=== PATIENT | female | born 1970 | race Caucasian/White ===

== ENCOUNTER → 2019-10-22 12:49 | Outpatient (CLI) | payer BC, SELFPAY ==
--- NOTE | ~2019-10-22 | XR_ITS ---
EXAMINATION: CT abdomen pelvis wo con, XR abdomen/kub 1V DATE: 10/22/2019 14:02 INDICATION: Calcium kidney stones presenting with left lower quadrant pain and left flank pain TECHNIQUE: 1. Computed tomography (CT) of the abdomen and pelvis was performed without intravenous contrast. Aut omated exposure control and iterative reconstruction technique were employed. The dose-length product was 221.25 mGy-cm. 2. COMPARISON: None FINDINGS: CT: Lung bases are clear. Heart size is normal. No pericardial or pleural effusion. Liver, gallbladder, s pleen, pancreas and bilateral adrenal glands are normal. Bilateral nephrolithiasis with at least 7 st ones in the right kidney measuring up to 7 mm at the upper pole and 11 stones in the right kidney [place] up to 4 mm in the upper and lower poles. 4 mm in the distal left ureter approximately 2 cm fro m the ureterovesicular junction. No hydronephrosis or hydroureter. No right-sided ureteral stones. Bl adder is normal. Phlebolith in the right hemipelvis. Large amount of stool throughout the colon. Smal l bowel and appendix are normal. No free intraperitoneal gas or fluid. No pathologically enlarged abd ominal or pelvic lymphadenopathy. Mild bilateral hip osteoarthritis. KUB: The 4 x 3 mm distal left ureteral stone is clearly visible on the plain radiographs as are several of the larger stones in both kidneys. Phlebolith in the right hemipelvis. Normal bowel gas pattern. IMPRESSION: 1. Bilateral nephrolithiasis with nonobstructing 4 x 3 mm stone in the distal left ureter without hyd ronephrosis. Reviewed, dictated and finalized at location B. IMPRESSION: 1. Bilateral nephrolithiasis with nonobstructing 4 x 3 mm stone in the distal l eft ureter without hydronephrosis.
== END ==
PROVIDERS: Visit Provider Urology
DX: N20.0 Calculus of kidney (principal)
CPT/HCPCS: 74018; 74176

== ENCOUNTER 2019-10-24 01:14 | Outpatient (CLI) | payer BC, SELFPAY ==
[2019-10-24 20:48] LABS: SARS-CoV-2 RNA PCR Negative
== END 2019-10-24 01:15 | disposition home or self-care (01) ==
LOC: ANHCOVIDDT 01:15
PROVIDERS: Visit Provider Urology
DX: Z01.812 Encounter for preprocedural laboratory examination (principal); Z20.828 Contact with and (suspected) exposure to other viral communicable diseases
CPT/HCPCS: 87635; C9803; U0003

== ENCOUNTER 2019-10-26 00:34 | Day surgery (SDC) | payer BC, SELFPAY ==
[2019-10-23 16:03] VITALS: BMI 23.3
[2019-10-26] VITALS (10 sets, daily range): BP systolic 102–146; BP diastolic 60–79; PULSE 62–76; RESP 12–16; TEMP 36.2; O2SAT 96–100
--- NOTE | ~2019-10-26 | XR_ITS ---
EXAMINATION: XR retrograde pyelo w/stent LT DATE: 10/26/2019 11:53 INDICATION: Left renal stone extraction and stent placement. TECHNIQUE: 6 fluoroscopic images of the abdomen and pelvis were obtained during procedure performed facundo Martinez. Radiologist was not present for the imaging or procedure. The amount of fluoroscopy t benja used during this procedure was 0.2 minutes. COMPARISON: CT and KUB dated 10/22/2019 FINDINGS: Multiple bilateral renal stones are seen on the direct care provider images. Persistent density likely representing the previous noted distal left ureteral stone although this appears less conspicuous likely related t o fluoroscopic technique. Multiple additional stones at the bilateral kidneys. Subsequent images demo nstrate cannulation and wire advancement through the left ureter to the left renal collecting system with retrograde contrast injection demonstrating a smooth proximal to mid left ureter with no urothel ial irregularities or filling defects. No hydronephrosis. Final images demonstrate placement of a lef t internal ureteral stent with formed in the left renal pelvis and in the bladder. The suspected ston e in the left ureter is no longer visualized and may have been extracted however given the poor visua lization of the suspected stone on the initial direct care provider image this cannot be absolutely determined. IMPRESSION: 1. Bilateral nephrolithiasis with likely extraction of a distal left ureteral stone. See procedure no te for further detail. 2. Left internal ureteral stent placement in expected position. Reviewed, dictated and finalized at location B. IMPRESSION: 1. Bilateral nephrolithiasis with likely extraction of a distal left ureteral s tone. See procedure note for further detail. 2. Left internal ureteral stent placement in expected position.
--- NOTE | 2019-10-26 07:53 | WPDHPUPDATE1 ---
History and Physical Update Update Date/Time: 10/26/19 07:53 History and Physical has been reviewed, including an updated exam of the patient. There are NO changes in the patient's condition. Risks, benefits, and alternatives have been discussed and questions answered. Patient agrees to proceed with procedure. Plan for cystoscopy with left retrograde, left ureteroscopy with stone extraction , stent placement, possible holmium laser.
--- NOTE | 2019-10-26 09:02 | ECG_ITS ---
Measurements Intervals [place] Rate: 79 P: -9 NH: 136 QRS: -1 QRSD: 80 T: 34 QT: 360 QTc: 414 Interpretive Statements SINUS RHYTHM NORMAL ECG Electronically Signed On 10-26-2019 9:59:47 CDT by Chino Abreu D.O.
[2019-10-26] MEDS: LACTATED RINGERS 1,000 ML 30 ML IV CONT (09:49)
--- NOTE | 2019-10-26 10:08 | WPDANESEPPF ---
Anes - Initial Pre Proc Eval Procedure: Operation Date: 10/26/19 10:30 Proposed Procedures p Cystoscopy, Left Ureteroscopy, Left Retrograde Pyelogram, Left Stone Extraction, Possible Left Stent Placement - Lion Martinez MD s Possible Holmium Laser Procedure - Lion Martinez MD Date/Time: 10/26/19 10:08 Surgeon: Lion Martinez MD Pre Op Diagnosis: Left Ureteral Stone Patient Data Age: 48 Gender: F Height: 5 ft 6 in Weight: 65.77 kg Allergies Allergy/AdvReac Type Severity Reaction Status Date / Time No Known Allergies Allergy Verified 10/23/19 16:03 Home Medications Medication Instructions Recorded Confirmed Type atorvastatin 80 mg PO DAILY 10/23/19 10/23/19 History duloxetine 60 mg PO DAILY 10/23/19 10/23/19 History esomeprazole magnesium 40 mg PO BID 10/23/19 10/23/19 History ezetimibe 10 mg PO DAILY 10/23/19 10/23/19 History levothyroxine [Euthyrox] 75 mcg PO DAILY 10/23/19 10/23/19 History lisinopril 10 mg PO DAILY 10/23/19 10/23/19 History potassium citrate 10 meq PO BID 10/23/19 10/23/19 History zolpidem 10 mg PO HS 10/23/19 10/23/19 History Patient hx anesthesia problems: none Family hx anesthesia problems: none [facility] Past Medical History Medical History (Updated 10/26/19 @ 10:11 by Benito Gallardo MD) HTN (hypertension) Hyperlipidemia Hypothyroidism Social History Social History Smoking packs per day: 1 Smoking cigarettes per day: 20.0 Smoking status: Current every day smoker Tobacco type: cigarettes Spiritual care concerns: No Anes - Eval Final PreProcedure Day of Procedure 10/26/19 10:08 Patient weight: normal Heart: regular rate and rhythm Lungs: clear to auscultation Airway: Mallampati scale class II Neurological: alert and oriented Last oral intake: >/= 8 hours ASA classification: II Emergent: no Anesthetic plan: proceed Anesthesia type and monitoring: general LMA and standard monitoring Informed Consent: The patient's anesthetic plan and its attendant risks and benefits were discussed with the patient/family/POA. Questions were solicited and answers provided to the satisfaction of the patient/family/POA.
[2019-10-26] MEDS: MIDAZOLAM HCL 2 MG/2 ML VIAL IV PUSH (10:16)
[2019-10-26] MEDS: ceFAZolin 2 GM/D5W 50 ML 2 GM/50 ML BAG IVPB (11:10)
[2019-10-26] MEDS: LIDOCAINE HCL 2% GEL UROJET 10 ML PKG MUCOUS MEM (11:26)
--- NOTE | 2019-10-26 11:33 | P.OP_ITS ---
Procedure Note - Detailed Date of procedure: 10/26/19 Pre-op diagnosis: Left Ureteral Stone Post-op diagnosis: same Procedure performed: Cystoscopy, left retrograde pyelogram, left ureteroscopy with stone extraction, left ureteral stent placement 4.8 [place] contour Description of procedure: patient is taken to the operative suite and correctly identified. Once anesthesia was obtained she was placed in the dorsal lithotomy position and prepped and draped usual sterile fashion. Twenty-two [place] scope was inserted into the bladder. There is no tumors noted. Left ureteral orifice was cannulated with guidewire. We dilated the ureter with an 8/10 dilator. A rigid ureteral scope was then inserted the stone was visualized in the grasped is entirety. Pyelogram was then performed from placement of stent. 4.8 [place] contour stent was then placed with the proximal end coiled in the renal pelvis distal in the bladder. Bladder was drained with placement of a 16 [place] as she has difficulty voiding postoperatively in the past. 2% viscous lidocaine was inserted urethra patient is taken recovery in stable condition. She will Remove the tomorrow. She will follow up in approximately 10 days for stent removal. Anesthesia: GLMA Surgeon: Lion Martinez MD Drains: Yes Packing: No Pathology: yes Complications: No immediate complications Condition: stable Disposition: PACU
[2019-10-26] MEDS: diphenhydrAMINE HCl INJ 50 MG/ML VIAL 25 MG IV PUSH (12:31)
== END 2019-10-26 13:40 | disposition home or self-care (01) ==
PROVIDERS: PCP Family Medicine; Visit Provider Urology
PROC: (CPT 52352; principal; 2019-10-26 10:30)
DX: N20.1 Calculus of ureter (principal); I10 Essential (primary) hypertension; E78.5 Hyperlipidemia, unspecified; E03.9 Hypothyroidism, unspecified; K21.9 Gastro-esophageal reflux disease without esophagitis; F17.210 Nicotine dependence, cigarettes, uncomplicated; Z79.899 Other long term (current) drug therapy
CPT/HCPCS: 52352; 52332; 74420; 82365; 88300; 93005; A9270; C1769; C2617; J0690; J1100; J1200; J2250; J2405; J2704; J3010; J7120; Q9966

== ENCOUNTER 2019-12-11 13:02 | Outpatient (CLI) | payer BC, SELFPAY ==
--- NOTE | ~2019-12-11 | XR_ITS ---
XR abdomen/kub 1V 12/11/2019 13:14 Indication: Renal stones Procedure: KUB Comparison: 10/22/2019 Findings: There are multiple bilateral renal stones. Bowel gas pattern is nonobstructive. Lung bases are unremarkable. No acute osseous abnormality. There are pelvic phleboliths. Impression: 1: Bilateral nephrolithiasis. Reviewed, dictated and finalized at location B. Impression: 1: Bilateral nephrolithiasis.
== END 2019-12-11 13:03 | disposition home or self-care (01) ==
LOC: ANHIMG 13:06
PROVIDERS: PCP Urology; Visit Provider Urology
DX: N20.0 Calculus of kidney (principal)
CPT/HCPCS: 74018

== ENCOUNTER 2022-06-16 11:21 | Outpatient (CLI) | payer BC, SELFPAY ==
--- NOTE | ~2022-06-16 | CT_ITS ---
EXAMINATION: CT abdomen pelvis wo con DATE: 06/16/2022 11:41 INDICATION: Calculus of kidney. TECHNIQUE: Computed tomography (CT) of the abdomen and pelvis was performed without intravenous contr ast. Automated exposure control and iterative reconstruction technique were employed. The dose-length product was 194.85 mGy-cm. COMPARISON: CT abdomen and pelvis 10/22/2019 FINDINGS: The visualized portions of the lung bases demonstrate mild atelectasis. No pleural effusion . The heart size is normal. No pericardial effusion. The liver, gallbladder, spleen, pancreas, and ad renal glands are normal. There are approximately 10 stones in right kidney measuring up to 5 mm. Ther e is mild right hydronephrosis and hydroureter. There is a 3 mm stone in distal right ureter. There a re least 9 stones in left kidney. The largest stone or cluster of stones measures 11 mm. There are no dilated loops of bowel. The appendix is normal. There are no pathologically enlarged lymph nodes. Th ere is no free intraperitoneal fluid. There is mild lumbar spondylosis. IMPRESSION: 1. 3 mm stone in distal right ureter with mild right hydronephrosis and hydroureter. 2. Bilateral nonobstructing kidney stones. Reviewed, dictated and finalized at location A. IMPRESSION: 1. 3 mm stone in distal right ureter with mild right hydronephrosis and hydrour eter. 2. Bilateral nonobstructing kidney stones.
== END 2022-06-16 11:22 | disposition home or self-care (01) ==
LOC: ANHIMG 11:28
PROVIDERS: Visit Provider Urology
DX: N13.2 Hydronephrosis with renal and ureteral calculous obstruction (principal)
CPT/HCPCS: 74176

== ENCOUNTER → 2022-12-15 08:47 | Outpatient (CLI) | payer BC, SELFPAY ==
--- NOTE | ~2022-12-15 | XR_ITS ---
EXAMINATION: CT abdomen pelvis wo con, XR abdomen/kub 1V DATE: 12/15/2022 09:12 (accession [id number]), 12/15/2022 09:13 (accession [id number]) INDICATION: Renal stones TECHNIQUE: Computed tomography (CT) of the abdomen and pelvis was performed without intravenous contr ast. The dose-length product was 246.06 mGy-cm. Automated exposure control and iterative reconstructi on technique were employed. KUB COMPARISON: CT dated 06/16/2022 FINDINGS: Lung bases are unremarkable. Heart size normal. No significant pleural or pericardial effus ion. There are multiple bilateral renal stones which are nonobstructing, approximately 10-12 on both sides no acute osseous abnormality.. No ureteral stones or hydronephrosis. Bladder is decompressed. N onobstructive bowel gas pattern. The liver, spleen, pancreas, adrenal glands are unremarkable. Gallbladder is present. No free air or free fluid. KUB: Bilateral renal stones are evident radiographically. IMPRESSION: 1. Nonobstructing bilateral nephrolithiasis. Reviewed, dictated and finalized at location B. IMPRESSION: 1. Nonobstructing bilateral nephrolithiasis.
== END ==
PROVIDERS: PCP Urology; Visit Provider Urology
DX: N20.0 Calculus of kidney (principal)
CPT/HCPCS: 74018; 74176

== ENCOUNTER 2023-01-07 00:25 | Day surgery (SDC) | payer BC, SELFPAY ==
[2022-12-28 14:13] VITALS: BMI 24.3
--- NOTE | 2022-12-28 14:17 | PC.NURSE ---
Report to the Outpatient Waiting Room, entrance under the green pavilion located off [facility], at time 7:00 on date 01/07/23. Planned Procedure Time: 9:00. Time changes happen often and if your time is changed the preop area will call you the afternoon before. - You and your visitor will be asked to self-screen and do not enter if you have any COVID symptoms. - A mask is optional within the hospital at this time. Patients may have clear liquids (water, carbonated beverages, clear teas, apple juice) until 3 hours prior to surgery with a maximum of 20 ounces. - No food from midnight until time of surgery Take the following medications with a SIP of water the morning of surgery: DULOXETINE, LEVOTHYROXINE DO NOT STOP ANY OF YOUR OTHER PRESCRIPTION MEDICATIONS PRIOR TO SURGERY ?EXCEPT THE FOLLOWING Medications to discontinue per physician: N/A Date to take last dose: N/A Please no make-up, nail monegasque, hairspray, perfume, deodorant, or body powder the day of surgery. No jewelry (including any body piercings) or valuables the day of surgery, leave them at home. Please take a shower or bath the night before, or the morning of, surgery with an antibacterial soap. Wear comfortable, loose fitting clothing. - Jewelry must be removed prior to entering the operating room. Rings and piercings that are not removed may be cut off. - The hospital will not accept responsibility for valuables. - Please leave all valuables, including medications, at home the day of surgery. If you are going home after surgery, a licensed bus driver supervisor must drive you home. - NO public transportation without another adult if you receive anesthesia. - We recommend that an adult stay with you for 24 hours following discharge. - We also recommend that you do not drive, make important decision, drink alcoholic beverages, or take any drugs that were not prescribed by your health care provider for at least 24 hours after your discharge time. Follow any additional instructions given to you from your surgeon. If you or anyone in your household have experienced Covid symptoms in the past week, please notify your surgeon or the nurse liaison at the phone number below for possible testing. Telephone instructions given to PT - NEETA CHOWDHURY and asked if any additional questions and then verbalized understanding. Patient advised to call surgeon office or pre surgery nurse liaison [phone] if any additional questions.
[2023-01-07] VITALS (9 sets, daily range): BP systolic 103–128; BP diastolic 44–85; PULSE 52–80; RESP 12–20; TEMP 36.3–36.6; O2SAT 95–100
--- NOTE | ~2023-01-07 | XR_ITS ---
EXAMINATION: XR abdomen/kub 1V DATE: 01/07/2023 06:27 INDICATION: Kidney stones. TECHNIQUE: A supine view of the abdomen on 2 radiographs was obtained. COMPARISON: CT abdomen and pelvis 12/15/2022, radiographs 12/15/2022 FINDINGS: There are no dilated loops of bowel. There is a phlebolith in right pelvis. The kidneys are obscured by bowel. There are multiple stones in each kidney measuring up to 5 mm. IMPRESSION: 1. Bilateral kidney stones. Reviewed, dictated and finalized at location A. GE BUFFER IMPRESSION: 1. Bilateral kidney stones.
--- NOTE | 2023-01-07 06:04 | ECG_ITS ---
Measurements Intervals [place] Rate: 69 P: 22 HI: 169 QRS: -1 QRSD: 77 T: 62 QT: 369 QTc: 396 Interpretive Statements SINUS RHYTHM DELAYED PRECORDIAL R/S TRANSITION BORDERLINE ECG COMPARED TO ECG 10/26/2019 09:16:28 NO SIGNIFICANT CHANGES Electronically Signed On 01-07-2023 7:29:45 HAND FRETTED INSTRUMENT [employer]KER by Chino Abreu D.O.
--- NOTE | 2023-01-07 06:39 | WPDHPUPDATE1 ---
History and Physical Update Update Date/Time: 01/07/23 06:39 History and Physical has been reviewed, including an updated exam of the patient. There are NO changes in the patient's condition. Risks, benefits, and alternatives have been discussed and questions answered. Patient agrees to proceed with procedure.
[2023-01-07] MEDS: LACTATED RINGERS 1,000 ML 30 ML IV CONT ×2 (06:45→08:09)
--- NOTE | 2023-01-07 07:02 | WPDANESEPPF ---
Anes - Initial Pre Proc Eval Procedure: Operation Date: 01/07/23 07:30 Proposed Procedures p Left Extracorporeal Shock Wave Lithotripsy - Shaw Chaudhary MD Date/Time: 01/07/23 07:02 Surgeon: Shaw Chaudhary MD Pre Op Diagnosis: left kidney stones Patient Data Age: 52 Gender: F Height: 1.7 m Weight: 70.3 kg Allergies Allergy/AdvReac Type Severity Reaction Status Date / Time No Known Allergies Allergy Verified 12/28/22 14:12 Home Medications Medication Instructions Recorded Confirmed Type atorvastatin 80 mg tablet 80 mg PO DAILY 10/23/19 12/28/22 History duloxetine 60 mg capsule,delayed 60 mg PO DAILY 10/23/19 12/28/22 History release esomeprazole magnesium 40 mg 40 mg PO BID 10/23/19 12/28/22 History capsule,delayed release ezetimibe 10 mg tablet 10 mg PO DAILY 10/23/19 12/28/22 History levothyroxine 75 mcg tablet 75 mcg PO DAILY 10/23/19 12/28/22 History (Euthyrox) lisinopril 10 mg tablet 10 mg PO DAILY 10/23/19 12/28/22 History potassium citrate 10 mEq (1,080 10 meq PO BID 10/23/19 12/28/22 History mg) tablet,extended release zolpidem 10 mg tablet 10 mg PO HS 10/23/19 12/28/22 History Laboratory Tests 01/07/23 06:19 Urine Color Cancelled Urine Appearance Cancelled Urine pH Cancelled Ur Specific [place] Cancelled Urine Protein Cancelled Urine Glucose (UA) Cancelled Urine Ketones Cancelled Ur Blood (Man) Cancelled Urine Nitrate Cancelled Urine Bilirubin Cancelled Urine Urobilinogen Cancelled Add Ur Microanalysis Cancelled Leukocyte Esterase Rfl Cancelled Urine RBC Cancelled Urine WBC Cancelled Urine WBC Clumps Cancelled Ur Squamous Epith Cells Cancelled Ur Transition Epith Cell Cancelled Ur Renal Epithelial Cell Cancelled Mina Biurate Crystals Cancelled Calcium Carbonate Cryst Cancelled Calcium Phosphate Cryst Cancelled Calcium Oxalate Crystal Cancelled Leucine Crystals Cancelled Cystine Crystals Cancelled Uric Acid Crystals Cancelled Triple Phos Crystals Cancelled Sulfonamide Crystals Cancelled Cholesterol Crystals Cancelled Talc Crystals Cancelled Tyrosine Crystals Cancelled Hippuric Acid Crystals Cancelled Bilirubin Crystals Cancelled Other Crystals Cancelled Amorphous Sediment Cancelled Other Sediment Cancelled Urine Bacteria Cancelled Urine Casts Cancelled Cellular Casts Cancelled Epithelial Casts Cancelled Fatty Casts Cancelled Hyaline Casts Cancelled Granular Casts Cancelled Waxy Casts Cancelled Broad Casts Cancelled RBC Casts Cancelled WBC Casts Cancelled Urine Starch Cancelled Urine Mucus Cancelled Urine Trichomonas Cancelled Urine Yeast (Budding) Cancelled Ur Oval Fat Bodies Cancelled Sperm Presence Cancelled Patient hx anesthesia problems: none Family hx anesthesia problems: none Results Review: All pre-operative results and documents have been reviewed as part of the pre-operative evaluation. PENDING SALE TO [facility] Past Medical History Medical History HTN (hypertension) Hyperlipidemia Hypothyroidism Surgical History Surgical History (Updated 01/07/23 @ 07:02 by Benito Gallardo MD) Hx of cystoscopy Social History Social History Smoking packs per day: 1 Smoking cigarettes per day: 20.0 Years smoked: 35 Smoking pack-years: 35.00 Smoking status: Current every day smoker Tobacco type: cigarettes Alcohol intake: never Substance use: never Substance use type: does not use Living arrangements: with family Spiritual care concerns: No Anes - Eval Final PreProcedure Day of Procedure 01/07/23 07:02
[2023-01-07 07:17] LABS: INR 0.9; Prothrombin Time 12.9 Seconds (11.1-14.7)
[2023-01-07] MEDS: ceFAZolin 2 GM/D5W 50 ML 2 GM/50 ML BAG IVPB (07:22)
--- NOTE | 2023-01-07 08:06 | W.PM.PROC2 ---
Procedure Note - Detailed Date of Procedure 01/07/23 Pre-op Diagnosis Bilateral kidney stones Post-op Diagnosis Same Procedure Performed Left ESWL Surgeon Shaw Chaudhary MD Anesthesia General Description of Procedure The patient was brought to the operative suite where she was placed in the supine position on the Dornier lithotripsy table. Course of this procedure we were able to treat for stones in kidney, each with approximately 6 shocks. The stones appeared to fragment nicely treatment. A total of 2500 shocks were delivered at a power setting of 1-4. There appeared to be good fragmentation of the stone. The patient tolerated the procedure well and was taken to the recovery room in good condition. Drains No Packing No Pathology None sent Complications No immediate complications Condition Stable Disposition PACU
[2023-01-07] MEDS: fentaNYL CITRATE INJ (*CRX) 100 MCG/2 ML VIAL 25 MCG IV PUSH ×8 (08:50→09:37)
[2023-01-07] MEDS: oxyCODONE HCL (*CRX) 5 MG TAB IR PO (09:34)
== END 2023-01-07 10:14 | disposition home or self-care (01) ==
PROVIDERS: Visit Provider Urology
PROC: (CPT 50590; principal; 2023-01-07 07:30)
DX: N20.0 Calculus of kidney (principal); I10 Essential (primary) hypertension; E78.5 Hyperlipidemia, unspecified; E03.9 Hypothyroidism, unspecified; F17.210 Nicotine dependence, cigarettes, uncomplicated
CPT/HCPCS: 50590; 36415; 74018; 85610; 85730; 93005; A9270; J0690; J1100; J2250; J2405; J2704; J3010; J7120

== ENCOUNTER 2023-02-04 03:38 | Day surgery (SDC) | payer BC, SELFPAY ==
--- NOTE | 2023-01-28 07:34 | P.HP_ITS ---
History of Present Illness History of Present Illness Consent: Risks, benefits, and alternatives have been discussed and questions answered. Patient agrees to proceed with procedure. Chief complaint: right kidney stone Narrative: Nicole Mak is a 52 year old female Who has a long history of recurrent urolithiasis this has required, not only percutaneous nephrolithotomy, but several ESWL in the past. Recent imaging demonstrates reaccumulation of bilateral stones she now presents for left ESWL. She is aware of the risks including, but not limited to, hematuria, perinephric hematoma, need for additional procedures. Review of Systems Review of Systems: All systems reviewed & are unremarkable except as noted in HPI and below PMFSH Past Medical History Medical History (Updated 01/07/23 @ 08:09 by Shaw Chaudhary MD) HTN (hypertension) Hyperlipidemia Hypothyroidism Surgical History Surgical History (Updated 01/07/23 @ 07:02 by Benito Gallardo MD) Hx of cystoscopy Social History Social History Smoking packs per day: 1 Smoking cigarettes per day: 20.0 Years smoked: 35 Smoking pack-years: 35.00 Smoking status: Current every day smoker Tobacco type: cigarettes Alcohol intake: never Substance use: never Substance use type: does not use Living arrangements: with family Spiritual care concerns: No Meds Home Medications and Allergies Home Medications Medication Instructions Recorded Confirmed Type atorvastatin 80 mg tablet 80 mg PO DAILY 10/23/19 12/28/22 History duloxetine 60 mg capsule,delayed 60 mg PO DAILY 10/23/19 01/07/23 History release esomeprazole magnesium 40 mg 40 mg PO BID 10/23/19 12/28/22 History capsule,delayed release ezetimibe 10 mg tablet 10 mg PO DAILY 10/23/19 12/28/22 History levothyroxine 75 mcg tablet 75 mcg PO DAILY 10/23/19 01/07/23 History (Euthyrox) lisinopril 10 mg tablet 10 mg PO DAILY 10/23/19 12/28/22 History potassium citrate 10 mEq (1,080 10 meq PO BID 10/23/19 12/28/22 History mg) tablet,extended release zolpidem 10 mg tablet 10 mg PO HS 10/23/19 12/28/22 History hydrocodone 5 mg-acetaminophen 325 1 - 2 tablet PO Q6H PRN pain #20 01/07/23 Rx mg tablet tabs Allergies Allergy/AdvReac Type Severity Reaction Status Date / Time No Known Allergies Allergy Verified 01/07/23 08:31 Exam Const: General: no acute distress Resp: Effort & Inspection: normal respiratory effort GI: Inspection: non-distended GI Palp: No abdominal tenderness and No Guarding due to palpation present (GI) Auscultation: normal bowel sounds Assessment and Plan Assessment and plan (1) Bilateral kidney stones: Code(s): N20.0 - Calculus of kidney Status: Acute Assessment and Plan: * Left ESWL
[2023-02-01 08:35] VITALS: BMI 23.9
--- NOTE | 2023-02-01 08:37 | PC.NURSE ---
Report to the Outpatient Waiting Room, entrance under the green pavilion located off [facility], at time 0600 on date 02/04/23. Planned Procedure Time: 0730. Time changes happen often and if your time is changed the preop area will call you the afternoon before. - You and your visitor will be asked to self-screen and do not enter if you have any COVID symptoms. - A mask is optional within the hospital at this time. Patients may have clear liquids (water, carbonated beverages, clear teas, apple juice) until 3 hours prior to surgery with a maximum of 20 ounces. - No food from midnight until time of surgery Take the following medications with a SIP of water the morning of surgery: DULOXETINE, LEVOTHYROXINE DO NOT STOP ANY OF YOUR OTHER PRESCRIPTION MEDICATIONS PRIOR TO SURGERY ?EXCEPT THE FOLLOWING Medications to discontinue per physician: N/A Date to take last dose: N/A Please no make-up, nail irish, hairspray, perfume, deodorant, or body powder the day of surgery. No jewelry (including any body piercings) or valuables the day of surgery, leave them at home. Please take a shower or bath the night before, or the morning of, surgery with an antibacterial soap. Wear comfortable, loose fitting clothing. - Jewelry must be removed prior to entering the operating room. Rings and piercings that are not removed may be cut off. - The hospital will not accept responsibility for valuables. - Please leave all valuables, including medications, at home the day of surgery. If you are going home after surgery, a licensed pick up and delivery driver must drive you home. - NO public transportation without another adult if you receive anesthesia. - We recommend that an adult stay with you for 24 hours following discharge. - We also recommend that you do not drive, make important decision, drink alcoholic beverages, or take any drugs that were not prescribed by your health care provider for at least 24 hours after your discharge time. Follow any additional instructions given to you from your surgeon. If you or anyone in your household have experienced Covid symptoms in the past week, please notify your surgeon or the nurse liaison at the phone number below for possible testing. Telephone instructions given to PT - NEETA CHOWDHURY and asked if any additional questions and then verbalized understanding. Patient advised to call surgeon office or pre surgery nurse liaison [phone] if any additional questions.
[2023-02-04] VITALS (9 sets, daily range): BP systolic 116–150; BP diastolic 59–84; PULSE 57–78; RESP 12–20; TEMP 36.2–36.4; O2SAT 97–100
--- NOTE | ~2023-02-04 | XR_ITS ---
Supine and upright views of the abdomen Clinical history: Lithotripsy COMPARISON: 01/07/2023 Findings: Bowel gas pattern is nonspecific. No evidence for obstruction or free air. Numerous small b ilateral renal stones are present. Osseous structures are intact. Impression: Numerous small bilateral renal stones. Reviewed, dictated and finalized at [facility]. RNET SPECIALIST Impression: Numerous small bilateral renal stones.
--- NOTE | 2023-02-04 06:24 | WPDHPUPDATE1 ---
History and Physical Update Update Date/Time: 02/04/23 06:24 History and Physical has been reviewed, including an updated exam of the patient. There are NO changes in the patient's condition. Risks, benefits, and alternatives have been discussed and questions answered. Patient agrees to proceed with procedure.
[2023-02-04 06:31] LABS: Appearance Urine Clear (Clear); Bacteria Urine None Seen /hpf; Bilirubin Urine Negative (Negative); Blood Urine Trace (Negative); Color Urine Yellow (Yellow); Glucose Urine UA Negative (Negative); Ketones Urine Negative (Negative); Leukocyte Esterase Ur Negative LEU/UL (Negative); Nitrate Urine Negative (Negative); Non Pathogenic Casts 0-2; Protein Urine Negative (Negative); Specific Grav Ur 1.014 (1.001-1.035); Squamous Epithelial Cell Urine None seen /hpf (Few); Urobilinogen Urine 0.2 mg/dL (<2.0); WBC Urine 0-5 /hpf; pH Urine 6.5 (5.0-9.0)
[2023-02-04] MEDS: LACTATED RINGERS 1,000 ML 30 ML IV CONT (06:45)
[2023-02-04 06:52] LABS: Prothrombin Time 13.5 Seconds (11.1-14.7)
[2023-02-04 06:53] LABS: Partial Thromboplastin Time 32.2 SECONDS (22.3-36.8)
--- NOTE | 2023-02-04 07:08 | WPDANESEPPF ---
Anes - Initial Pre Proc Eval Procedure: Operation Date: 02/04/23 07:30 Proposed Procedures p Right Extracorporeal Shock Wave Lithotripsy - Shaw Chaudhary MD Date/Time: 02/04/23 07:08 Surgeon: Shaw Chaudhary MD Pre Op Diagnosis: right kidney stone Patient Data Age: 52 Gender: F Height: 1.7 m Weight: 69.3 kg Allergies Allergy/AdvReac Type Severity Reaction Status Date / Time No Known Allergies Allergy Verified 02/04/23 06:21 Home Medications Medication Instructions Recorded Confirmed Type atorvastatin 80 mg tablet 80 mg PO DAILY 10/23/19 02/01/23 History duloxetine 60 mg capsule,delayed 60 mg PO DAILY 10/23/19 02/01/23 History release esomeprazole magnesium 40 mg 40 mg PO BID 10/23/19 02/01/23 History capsule,delayed release ezetimibe 10 mg tablet 10 mg PO DAILY 10/23/19 02/01/23 History levothyroxine 75 mcg tablet 75 mcg PO DAILY 10/23/19 02/01/23 History (Euthyrox) lisinopril 10 mg tablet 10 mg PO DAILY 10/23/19 02/01/23 History potassium citrate 10 mEq (1,080 10 meq PO BID 10/23/19 02/01/23 History mg) tablet,extended release zolpidem 10 mg tablet 10 mg PO HS 10/23/19 02/01/23 History hydrocodone 5 mg-acetaminophen 325 1 - 2 tablet PO Q6H PRN pain #20 01/07/23 02/01/23 Rx mg tablet tabs Laboratory Tests 02/04/23 02/04/23 06:17 06:34 PT 13.5 Seconds (11.1-14.7) INR 1.0 APTT 32.2 SECONDS (22.3-36.8) Urine Color Yellow (Yellow) Urine Appearance Clear (Clear) Urine pH 6.5 (5.0-9.0) Ur Specific Jesse 1.014 (1.001-1.035) Urine Protein Negative mg/dL (Negative) Urine Glucose (UA) Negative mg/dL (Negative) Urine Ketones Negative mg/dL (Negative) Ur Blood (Man) Trace (Negative) Urine Nitrate Negative (Negative) Urine Bilirubin Negative (Negative) Urine Urobilinogen 0.2 mg/dL (<2.0) Leukocyte Esterase Rfl Negative KAYLI/UL (Negative) Urine RBC 3-5 H /hpf (0-2) Urine WBC 0-5 /hpf Ur Squamous Epith Cells None seen /hpf (Few) Urine Bacteria None seen /hpf Urine Casts 0-2 Patient hx anesthesia problems: none Family hx anesthesia problems: none Results Review: All pre-operative results and documents have been reviewed as part of the pre-operative evaluation. PMFSH Past Medical History Medical History HTN (hypertension) Hyperlipidemia Hypothyroidism Surgical History Surgical History Hx of cystoscopy Social History Social History Smoking packs per day: 1 Smoking cigarettes per day: 20.0 Years smoked: 35 Smoking pack-years: 35.00 Smoking status: Current every day smoker Tobacco type: cigarettes Alcohol intake: never Substance use: never Substance use type: does not use Living arrangements: with family Spiritual care concerns: No Anes - Eval Final PreProcedure Day of Procedure 02/04/23 07:08 Patient weight: normal Heart: regular rate and rhythm Lungs: decreased breath sounds Airway: Mallampati scale class II Neurological: alert and oriented Last oral intake: >/= 8 hours ASA classification: III Emergent: no Anesthetic plan: proceed Anesthesia type and monitoring: general LMA and standard monitoring Results Review: All pre-operative results and documents have been reviewed as part of the pre-operative evaluation. Informed Consent: The patient's anesthetic plan and its attendant risks and benefits were discussed with the patient/family/POA. Questions were solicited and answers provided to the satisfaction of the patient/family/POA.
[2023-02-04 07:21] LABS: Add Urine Microscopic? YES
[2023-02-04] MEDS: ceFAZolin 2 GM/D5W 50 ML 2 GM/50 ML BAG IVPB (07:30)
--- NOTE | 2023-02-04 08:03 | W.PM.PROC2 ---
Procedure Note - Detailed Date of Procedure 02/04/23 Pre-op Diagnosis Right kidney stone Post-op Diagnosis Same Procedure Performed Right ESWL Surgeon Shaw Chaudhary MD Anesthesia General Description of Procedure Patient is brought to the operative suite where she is placed in a supine position after the induction of a general LMA anesthetic. Focal point Lithotripter was 1st placed at her superior most stone in her right kidney. Therefore stones in her right kidney which we treated, each with 600 shocks. The stones appeared to fragment nicely early the procedure. Ultimately gave 25 shocks at a power setting of 4. The patient tolerated procedure well was taken to PACU in good condition Urine Output 0 Drains No Packing No Complications No immediate complications
[2023-02-04] MEDS: fentaNYL CITRATE INJ (*CRX) 100 MCG/2 ML VIAL 25 MCG IV PUSH ×8 (08:21→08:51)
[2023-02-04] MEDS: KETOROLAC 30 MG/ML VIAL (*BKC) IV PUSH (08:45)
[2023-02-04] MEDS: diphenhydrAMINE HCl INJ 50 MG/ML VIAL 25 MG IV PUSH (08:52)
[2023-02-04] MEDS: oxyCODONE HCL (*CRX) 5 MG TAB IR PO (09:40)
== END 2023-02-04 10:07 | disposition home or self-care (01) ==
PROVIDERS: Visit Provider Urology
PROC: (CPT 50590; principal; 2023-02-04 07:30)
DX: N20.0 Calculus of kidney (principal); I10 Essential (primary) hypertension; E78.5 Hyperlipidemia, unspecified; E03.9 Hypothyroidism, unspecified; F17.210 Nicotine dependence, cigarettes, uncomplicated; Z79.891 Long term (current) use of opiate analgesic; Z79.899 Other long term (current) drug therapy
CPT/HCPCS: 50590; 36415; 74018; 81001; 85610; 85730; A9270; J0690; J1200; J1885; J2250; J2270; J3010; J7120

== ENCOUNTER 2023-02-07 09:08 | Emergency (ER) | payer BC, SELFPAY ==
--- NOTE | ~2023-02-07 | CT_ITS ---
EXAMINATION: CT abdomen pelvis wo con DATE: 02/07/2023 10:28 INDICATION: Right flank pain, recent lithotripsy TECHNIQUE: Computed tomography (CT) of the abdomen and pelvis was performed without intravenous contr ast. The dose-length product (DLP) was 365.83 mGy-cm. Automated exposure control and iterative recons truction technique were employed. COMPARISON: 12/15/2022 FINDINGS: Minimal dependent atelectasis is present in the lung bases. The heart size is normal. The l iver, spleen, pancreas, gallbladder, and adrenal glands are normal. There are at least eight nonobstr ucting stones of the right kidney. There is been interval treatment of some of the stones described o n the comparison CT. There is moderate right hydroureteronephrosis without definite ureteral stone id entified. Nonobstructing stones of the left kidney measure up to 11 mm. No pathologically enlarged ab dominal or pelvic lymph nodes are identified. No free intraperitoneal gas or evidence of bowel obstru ction. A moderate volume of colonic stool is present. There is mild lumbar spondylosis. IMPRESSION: 1. Interval lithotripsy of some of the previously described right kidney stones with moderate right h ydroureteronephrosis but no right-sided stone fragments identified. 2. Bilateral nephrolithiasis. Reviewed, dictated and finalized at location B. STATEMENT CLERK IMPRESSION: 1. Interval lithotripsy of some of the previously described right kidney stones with moderate right hydroureteronephrosis but no right-sided stone fragments i dentified. 2. Bilateral nephrolithiasis.
[2023-02-07 09:09] VITALS: BP 152/74; PULSE 84; RESP 18; TEMP 36.5; O2SAT 100
[2023-02-07 09:47] LABS: Appearance Urine Cloudy (Clear); Bacteria Urine None Seen /hpf; Bilirubin Urine Negative (Negative); Blood Urine 3+ (Negative); Color Urine Yellow (Yellow); Glucose Urine UA Trace mg/dL (Negative); Ketones Urine Negative (Negative); Leukocyte Esterase Ur 2+ LEU/UL (Negative); Need Manual Microscopic Reviewed; Nitrate Urine Negative (Negative); Protein Urine Trace mg/dL (Negative); RBC Urine >100 /hpf (0-2); Specific Grav Ur 1.016 (1.001-1.035); Squamous Epithelial Cell Urine Few /hpf (Few); Urobilinogen Urine 0.2 mg/dL (<2.0); WBC Urine 21-50 /hpf; pH Urine 5.5 (5.0-9.0)
[2023-02-07 09:48] LABS: Add Urine Microscopic? YES
[2023-02-07 09:58] VITALS: BP 137/81; PULSE 81; RESP 16; O2SAT 100
[2023-02-07] MEDS: SODIUM CHLORIDE 0.9% IV 1,000 ML 999 ML IV CONT (10:30)
[2023-02-07] MEDS: MORPHINE SULFATE (*CRX) 4 MG/ML INJ IV PUSH (10:31)
[2023-02-07 10:35] VITALS: BP 133/69; PULSE 77; RESP 12; O2SAT 100
[2023-02-07 10:41] LABS: Basophils Absolute Auto 0.1 K/mm3 (0.0-0.1); Basophils Percent Auto 0.6 % (0.2-1.2); Eosinophils Absolute Auto 0.4 K/mm3 (0-0.3); Hematocrit 43.4 % (37.0-47.0); Hemoglobin 14.2 g/dL (12.0-15.0); Immature Granulocyte Absolute 0.07 K/mm3 (0.00-0.031); Immature Granulocyte Percent A 0.8 % (0-0.5); Lymphocytes Absolute Auto 1.88 K/mm3 (0.9-3.2); Lymphocytes Percent Auto 21.6 % (18.3-44.2); Mean Corpuscular HGB Conc 32.7 g/dl (32-36); Mean Corpuscular Hemoglobin 31.1 pg (26-34); Monocytes Absolute Auto 0.8 K/mm3 (0.1-0.6); Monocytes Percent Auto 8.9 % (2.6-8.5); Neutrophils Absolute Auto 5.6 K/mm3 (1.3-6.7); Neutrophils Percent Auto 64.1 % (45.5-73.1); Platelet Count Result 218 k/mm3 (150-375); Red Blood Count 4.57 M/mm3 (4.2-5.4); White Blood Count 8.7 K/mm3 (4.5-10.0)
[2023-02-07 10:53] LABS: Alanine Aminotransferase 28 U/L (6-35); Albumin Level 4.2 g/dL (3.5-5.1); Alkaline Phosphatase 126 U/L (38-126); Anion Gap 10 mmol/L (8-16); Aspartate Amino Transferase 31 U/L (14-36); Bilirubin,Total 0.5 mg/dL (0.2-1.3); Blood Urea Nitrogen 16 mg/dL (7-17); Calcium 9.7 mg/dL (8.4-10.2); Carbon Dioxide 26 mmol/L (22-30); Chloride 104 mmol/L (98-107); Estimated CRCL calculation 38 ml/min; Estimated Glomerular Filt Rate 36; Glucose 103 mg/dL (65-110); Sodium 140 mmol/L (137-145)
[2023-02-07 11:26] VITALS: BP 127/66; PULSE 66; RESP 14; O2SAT 100
[2023-02-07] MEDS: KETOROLAC 30 MG/ML VIAL (*BKC) IV PUSH (11:41)
[2023-02-07 11:42] VITALS: BP 132/77; PULSE 69; RESP 14; O2SAT 100
--- NOTE | 2023-02-07 11:53 | ED.ABDPAIN ---
HPI - Abdominal Pain General Chief Complaint: Abdominal Pain Stated Complaint: right flank pain Time Seen by Provider: 02/07/23 09:44 History of Present Illness HPI narrative: Patient is a 52-year-old female who presents to the ER with right flank pain. She underwent lithotripsy 3 days ago here. Pain suddenly increased today it is located right abdomen as well. She has had some nausea. No fevers or chills or sweats. In her urine she thinks she has passed a couple of small stones. Denies dysuria. She does not currently have a stent in place. Related Data Home Medications Medication Instructions Recorded Confirmed atorvastatin 80 mg tablet 80 mg PO DAILY 10/23/19 02/07/23 duloxetine 60 mg capsule,delayed 60 mg PO DAILY 10/23/19 02/07/23 release esomeprazole magnesium 40 mg 40 mg PO BID 10/23/19 02/07/23 capsule,delayed release ezetimibe 10 mg tablet 10 mg PO DAILY 10/23/19 02/07/23 levothyroxine 75 mcg tablet 75 mcg PO DAILY 10/23/19 02/07/23 (Euthyrox) lisinopril 10 mg tablet 10 mg PO DAILY 10/23/19 02/07/23 potassium citrate 10 mEq (1,080 10 meq PO BID 10/23/19 02/07/23 mg) tablet,extended release zolpidem 10 mg tablet 10 mg PO HS 10/23/19 02/07/23 diclofenac sodium 75 mg 75 mg PO DAILY 02/07/23 02/07/23 tablet,delayed release quetiapine 50 mg tablet 50 mg PO HS 02/07/23 02/07/23 Allergies Allergy/AdvReac Type Severity Reaction Status Date / Time No Known Allergies Allergy Verified 02/07/23 09:58 Review of Systems Review of Systems: All systems reviewed & are unremarkable except as noted in HPI and below Constitutional: Constitutional: Reports no additional constitutional complaints ENT: Reports system reviewed and no additional complaints, except as documented Cardiovascular: Cardiovascular: Reports no additional cardiovascular complaints Respiratory: Respiratory: Reports no additional respiratory complaints Gastrointestinal: Gastrointestinal: Reports abdominal pain, Denies diarrhea, Reports nausea and Denies vomiting Genitourinary: Genitourinary: Denies hematuria, Denies nocturia, Denies dysuria and Reports flank pain PMFSH Past Medical History Medical History HTN (hypertension) Hyperlipidemia Hypothyroidism Surgical History Surgical History Hx of cystoscopy Social History Social History Smoking packs per day: 1 Smoking cigarettes per day: 20.0 Years smoked: 35 Smoking pack-years: 35.00 Smoking status: Current every day smoker Tobacco type: cigarettes Alcohol intake: never Substance use: never Substance use type: does not use Living arrangements: with family Spiritual care concerns: No Exam Narrative: GENERAL: Well-appearing, well-nourished, and in no acute distress. HEAD: Normocephalic, atraumatic. ENT: Mucous membranes moist. CHEST: Clear to auscultation. No respiratory distress. HEART: Regular rate and rhythm. Normal peripheral pulses. ABDOMEN: Soft, nontender, nondistended. Mild right CVA tenderness EXTREMITIES: Normal range of motion. No edema. SKIN: Warm, dry, no rash. NEURO: Alert and oriented x3. PSYCH: Normal mood and affect. Course Course Emergency Course: patient resting comfortably. Educated on imaging and lab results. [place] appropriate for discharge home. Will start on antibiotics given elevated white blood cell count in her urine with positive leukocyte Esterase. Vital Signs Vital signs: Vital Signs Temperature 97.7 F 02/07/23 09:09 Pulse Rate 84 02/07/23 09:09 Respiratory Rate 18 02/07/23 09:09 Blood Pressure 152/74 H 02/07/23 09:09 Pulse Oximetry 100 02/07/23 09:09 Oxygen Delivery Room Air 02/07/23 09:09 Temperature 97.7 F 02/07/23 09:09 Pulse Rate 69 02/07/23 11:42 Respiratory Rate 14 02/07/23 11:42 Blo
== END 2023-02-07 12:03 | disposition home or self-care (01) ==
PROVIDERS: Emergency Provider Emergency Medicine
DX: N20.0 Calculus of kidney (principal); N39.0 Urinary tract infection, site not specified; F17.210 Nicotine dependence, cigarettes, uncomplicated; I10 Essential (primary) hypertension; E03.9 Hypothyroidism, unspecified
CPT/HCPCS: 36415; 74176; 80053; 81001; 81025; 85025; 87077; 87086; 87186; 96361; 96374; 96375; 99284; J1885; J2270; J7030

== ENCOUNTER 2023-04-08 09:32 | Outpatient (CLI) | payer BC, SELFPAY ==
--- NOTE | ~2023-04-08 | XR_ITS ---
EXAMINATION: XR abdomen/kub 1V INDICATION: Calculus of the kidney TECHNIQUE: Supine views of the abdomen were obtained on 2 radiographs. COMPARISON: 02/04/2023 FINDINGS: Bilateral internal ureteral stents are in expected position. At least three stones are note d in the left kidney lower pole which measure up to 4 mm. There appear to be stones in the left kidne y upper pole. No definite additional urolithiasis is identified although bowel contents obscure visua lization of the kidneys. There is a phlebolith of the right pelvis. A large volume of colonic stool i s present. IMPRESSION: 1. Left nephrolithiasis. Reviewed, dictated and finalized at location B. NDER WORKER HELPER IMPRESSION: 1. Left nephrolithiasis.
== END 2023-04-08 09:33 | disposition home or self-care (01) ==
PROVIDERS: Visit Provider Urology
DX: N20.0 Calculus of kidney (principal)
CPT/HCPCS: 74018

== ENCOUNTER 2023-05-24 10:21 | Outpatient (CLI) | payer BC, SELFPAY ==
--- NOTE | ~2023-05-24 | XR_ITS ---
Supine and upright views of the abdomen Clinical history: Renal stone Findings: Bowel gas pattern is nonspecific. No evidence for obstruction or free air. Questionable sma ll left renal stones. Osseous structures are intact. Impression: Questionable small left renal stones. Reviewed, dictated and finalized at location . Impression: Questionable small left renal stones.
--- NOTE | ~2023-05-24 | US_ITS ---
EXAMINATION: US retroperitoneal comp DATE: 05/24/2023 11:13 INDICATION: Kidney stones. TECHNIQUE: Multiple ultrasound grayscale images of the kidneys were obtained. COMPARISON: CT abdomen and pelvis 02/07/2023 FINDINGS: The right kidney measures 10.5 x 4.4 x 5.5 cm. The left kidney measures 11.6 x 5.3 x 4.2 cm. The kidn eys demonstrate normal parenchymal echogenicity. There is no hydronephrosis. The bladder is normal. IMPRESSION: 1. Normal kidney sizes. No hydronephrosis. Reviewed, dictated and finalized at location A.
== END 2023-05-24 10:22 | disposition home or self-care (01) ==
LOC: ANHIMG 10:22
PROVIDERS: Visit Provider Urology
DX: N20.0 Calculus of kidney (principal)
CPT/HCPCS: 74018; 76770

== ENCOUNTER 2024-01-13 10:16 | Outpatient (CLI) | payer BC, SELFPAY ==
--- NOTE | ~2024-01-13 | XR_ITS ---
EXAMINATION: XR abdomen/kub 1V DATE: 01/13/2024 10:39 INDICATION: Calculus of kidney. TECHNIQUE: A supine view of the abdomen on 2 radiographs was obtained. COMPARISON: Abdomen radiographs 05/24/2023, CT abdomen and pelvis 02/07/2023 FINDINGS: There are no dilated loops of bowel. There is a phlebolith in right pelvis. The kidneys are obscured by bowel. There are multiple stones in each kidney measuring up to 6 mm on the right and 5 mm on the left. IMPRESSION: 1. Bilateral kidney stones. Reviewed, dictated and finalized at location A. COOLER IMPRESSION: 1. Bilateral kidney stones.
== END 2024-01-13 10:17 | disposition home or self-care (01) ==
LOC: ANHIMG 10:20
PROVIDERS: Visit Provider Urology
DX: N20.0 Calculus of kidney (principal)
CPT/HCPCS: 74018

== ENCOUNTER 2024-02-03 11:03 | Outpatient (CLI) | payer BC, SELFPAY ==
--- NOTE | ~2024-02-03 | XR_ITS ---
EXAMINATION: XR abdomen/kub 1V DATE: 02/03/2024 11:20 INDICATION: Calculus of kidney. TECHNIQUE: A supine view of the abdomen on 2 radiographs was obtained. COMPARISON: CT abdomen and pelvis 02/03/2024 FINDINGS: There are no dilated loops of bowel. There is a moderate volume of stool in the colon. Ther e are multiple stones in each kidney measuring up to 4 mm. There is a phlebolith in right pelvis. IMPRESSION: 1. Bilateral kidney stones. Reviewed, dictated and finalized at location A. T METAL WELDER IMPRESSION: 1. Bilateral kidney stones.
--- NOTE | ~2024-02-03 | CT_ITS ---
Non-contrast CT scan of the Abdomen and Pelvis Clinical indication: Renal stone Technique: 2.5 mm axial scans were obtained through the abdomen and pelvis without intravenous or or al contrast. Dose reduction technique was used on this scan by utilizing automated exposure control a nd iterative reconstruction technique. The dose-length product (DLP) was 198.93 mGy-cm. COMPARISON: 02/07/2023 Findings: Images through the lung bases reveal no abnormalities. Small bilateral nonobstructing renal stones are present, largest measuring up to approximately 5 mm. No ureteral stone or hydronephrosis on either side. The liver, spleen, pancreas, gallbladder, and adrenals appear normal. There is no aortic aneurysm. There is no evidence of bowel obstruction. Images through the pelvis were performed. There is no evidence of ascites or lymphadenopathy. Urinary bladder unremarkable. No pelvic mass. Impression: Small bilateral nonobstructing renal stones, as detailed above. Reviewed, dictated and finalized at [facility]. LER TECHNICIAN Impression: Small bilateral nonobstructing renal stones, as detailed above.
== END 2024-02-03 11:04 | disposition home or self-care (01) ==
LOC: ANHIMG 11:05
PROVIDERS: Visit Provider Urology
DX: N20.0 Calculus of kidney (principal)
CPT/HCPCS: 74018; 74176

== ENCOUNTER 2024-07-13 09:13 | Outpatient (CLI) | payer BC, SELFPAY ==
--- NOTE | ~2024-07-13 | XR_ITS ---
XR abdomen/kub 1V Ordering provider: Vianey Salmeron MD History: . CALCULUS OF KIDNEY . Comparison: February 03, 2024 FINDINGS: BOWEL: Nonobstructive bowel gas pattern. ORGANOMEGALY: None. SIGNIFICANT PATHOLOGIC CALCIFICATIONS: Calcifications are projected over the left kidney which measur es 1.1 cm, 0.9 cm and 1.2 cm. Possibility that these are medication is in the stomach cannot be exclu ded. OTHER: No free air is seen under the diaphragm. IMPRESSION: NO ACUTE ABDOMINAL FINDINGS. Left kidney stones. Noncontrast CT is better for evaluation Reviewed, dictated and finalized at location A.
--- OUTSIDE RECORDS SUMMARY | 2024-07-13 09:18 | XMS_ITS | Encounter Summary ---
Author Organization [facility] Address [address] [place] [address] Phone Care Team Providers Care Medical Dermatologist Name Role Phone Mike Zuniga MD Primary Care Provider [phone] Encounter Details Date Type Department Care Team (Late st Contact Info) Description 12/05/2015 Scanned Document [employer] Sales Assistant Provider, Interface Default Social History Tobacco Use Types Packs/Day Years Used Date Smoking Tobacco: Never Assessed Comments Unknown Sex and Gender Information Value Date Recorded Sex Assigned at Not on file Legal Sex Female 12:21 PM CDT Gender Identity Not on file Sexual Orientation Not on file documented as of this encounter Plan of Treatment Not on file documented as of this encounter Visit Diagnoses Not on filedocumented in this encounter Care Teams Medical Dermatologist Relationship Specialty Start Date End Date Mike Zuniga MD [facility] [address] [place] [address] [place] [address] PCP - General Family Medicine 12/01/15 documented as of this encounter
--- OUTSIDE RECORDS SUMMARY | 2024-07-13 09:18 | XMS_ITS | Encounter Summary ---
Author Organization [facility] Address [address] [place] [address] Phone Care Team Providers Care Submarine Advisory Team Watch Officer Name Role Phone Mike Zuniga MD Primary Care Provider [phone] Encounter Details Date Type Department Care Team (Late st Contact Info) Description 02/23/2018 Telephone [facility] 1st Floor Gastroenterology [address], [place] [id number] Adela Galdamez APRN [address] [place], [place] [id number] Social History Tobacco Use Types Packs/Day Years Used Date Smoking Tobacco: Every Day Cigarettes 1 32 Smokeless Tobacco: Never Alcohol Use Standard Drinks/Week Comments Never 0 (1 standard drink = 0.6 oz pur e alcohol) AUDIT-C Answer Date Recorded Frequency of Alcohol Consumption Never 02/09/2018 Average Number of Drinks Not on file 018 Frequency of Binge Drinking Not on file 01/22 Comments Unknown Sex and Gender Information Value Date Recorded Sex Assigned at Not on file Legal Sex Female 12:21 PM CDT Gender Identity Not on file Sexual Orientation Not on file documented as of this encounter Miscellaneous Notes * Telephone Encounter - Adela Galdamez APRN - 02/23/2018 2:52 PM REGULATORY TECHNICIAN Noted, thank you. LATORY TECHNICIAN * Telephone Encounter - Mary Valle RN - 02/23/2018 2:27 PM CST Adela, Patent states taking - 8mcg twice daily. Have instructed to take 3 tabs daily and do enema to see if helps. Sent her a [employer] message. LATORY TECHNICIAN * Telephone Encounter - Mary Valle RN - 02/23/2018 1:00 PM CST [employer] message sent along with LM to call to clarify dose of Amitiza. LATORY TECHNICIAN * Telephone Encounter - Adela Galdamez APRN - 02/23/2018 12:21 PM REGULATORY TECHNICIAN See if she is taking the Amitiza twice a day. If so however increased to 3 tablets daily. Would have her consider trying an enema to help get things moving. LATORY TECHNICIAN * Telephone Encounter - Mary Valle RN - 02/23/2018 11:56 AM CST REQUEST: Adela, any additional recommendations for constipation to get relieve, no BM since 02/15/18. SUBJECTIVE: *02/09/18 Received script for Amtiza *02/09/18 KUB - Mag citrate - had horrific pain- had a BM stopped, *02/13/18 Started Amtiza - had BM for next 2 days *No BM since 02/15/18 *02/16/18 Had another KUB still shows stool - instructed to continue on Amtiza *Abdomen starting to feel tender/ pain 2 out of 10. OBJECTIVE: *02/09/18, 02/16/18 KUB *02/09/18, 02/11/18 labs *02/09/18 OV ASSESSMENT: MARIUSZ DX: Constipation Impaired comfort PLAN: Continue on Amtiza, continue to increase fluid intake Adela, Please review and guide LATORY TECHNICIAN * Telephone Encounter - Mary Valle RN - 02/23/2018 11:56 AM CST Regarding: FW: Visit Follow-Up Question Contact: ----- Message ----- From: Nicole Mak Sent: 02/23/2018 10:04 AM To: Gastroenterology [facility] Subject: Visit Follow-Up Question ----- Message from Bobby Lamb sent at 02/23/2018 10:04 AM REGULATORY TECHNICIAN ----- Hi, I have been taking the new medication Amitiza for the past couple of weeks for constipation andcrampiness in my stomach area. The first 2 days that I took the Amitiza I had a bowel movement eachmorning, but have not had one since. Is this still normal?? I feel the medicine is doing nothing. Thank you, Nicole Mak LATORY TECHNICIAN * Telephone Encounter - Mary Valle RN - 02/23/2018 11:43 AM CST LM LATORY TECHNICIAN documented in this encounter Plan of Treatment Not on file documented as of this encounter Visit Diagnoses Not on filedocumented in this encounter Care Teams Submarine Advisory Team Watch Officer Relationship Specialty Start Date End Date Mike Zuniga MD [facility] [address] [place], [place] [address] PCP - General Family Medicine 12/01/15 documented as of this encounter
--- OUTSIDE RECORDS SUMMARY | 2024-07-13 09:18 | XMS_ITS | Clinical Summary ---
Author Organization [facility] Blaire magana Address [address] [place] [address] Phone Care Team Providers Care [facility] [facility] Magistrate Name Role Phone Unavailable Primary Care Provider Unavailabl e Allergies No known active allergies Medications lisinopril (PRINIVIL) 10 MG tablet Take 10 mg by mouth in the morning. Active levothyroxine (SYNTHROID) 75 MCG tablet Take 75 mcg by mouth in the morning. 12/08/2017 Active ezetimibe (ZETIA) 10 MG tablet Take 10 mg by mouth in the morning. Active esomeprazole (NexIUM) [address] capsule Take 40 mg by mouth in the morning and 40 mg in the evening. Active atorvastatin (LIPITOR) 80 MG tablet Take 80 mg by mouth 1 (one) time each day 03/31/2020 Active DULoxetine (CYMBALTA) [address] capsule Take 60 mg by mouth in the morning and 60 mg before bedtime. 03/31/2020 Active zolpidem (AMBIEN) 10 MG tablet 04/04/2020 Active QUEtiapine (SEROquel) 50 MG tablet Take 50 mg by mouth at bed time 08/09/2022 Active Active Problems Problem Noted Date Diagnosed Date Nephrolithiasis 04/09/2020 Encounters Date Type Department Care Team Description 06/26/2024 11:00 AM CDT Office Visit [facility] [address] [place] [address] Jim Valle MD Nephrolithiasis (Primary Dx) 06/19/2024 Orders Only [facility] [address] [place] [address] Jim Valle MD Nephrolithiasis (Primary Dx) 06/08/2024 Orders Only [facility] [address] [place] [address] Cristy Vidal MA from Last 3 Months Immunizations Immunization Administration Dates Next Due Influenza, Injectable, Quadrivalent, Preservativ e Free 12/02/2015 Social History Tobacco Use Types Packs/Day Years Used Date Smoking Tobacco: Never Assessed Comments Unknown Sex and Gender Information Value Date Recorded Sex Assigned at Not on file Legal Sex Female 10:17 AM [facility] Gender Identity Not on file Sexual Orientation Not on file Last Filed Vital Signs Vital Sign Reading Time Taken Comments Blood Pressure 116/79 06/26/2024 11:11 AM CDT Pulse 89 06/26/2024 11:11 AM CDT Temperature - - Respiratory Rate - - Oxygen Saturation - - Inhaled Oxygen Concentration - - Weight 68.5 kg (151 lb) 06/26/2024 11:11 AM CDT Height 167.6 cm (5' 6 ) 06/26/2024 11:11 AM CDT Body Mass Index 24.37 06/26/2024 11:11 AM CDT Plan of Treatment Upcoming Encounters Date Type Department Care Team (Late st Contact Info) Description 06/26/2025 1:00 PM CDT Office Visit [facility] [address] [place] [address] Patricio Bolanos PA [address] [facility] [address] [place] [address] Health Maintenance Due Date Last Done Comments Pneumococcal PPSV23 Highest Risk Adult (1 of 3 - PCV13) 1989 Influenza Vaccine (Season Ended) 2024 12/02/19 16 Procedures Procedure Name Priority Date/Time Associated Diagnosis Comments LITHOLINK 24-HOUR URINE, [place] Routine 06/29/2024 7:00 AM CDT Nephrolithiasis from Last 3 Months Results * (ABNORMAL) Litholink 24-Hour Urine Panel (06/29/2024 7:00 AM CDT) CYSTINE, URINE, QUALITATIVE CANCELED [facility] 1 Comment: Test not performed. Previous test results on file. Result canceled by the ancillary. Volume, 24-Hour Urine 2,000 500 - 4,000 mL/24 hr [facility] 1 Calcium oxalate index, 24 hour Urine 4.97(L) 6.00 - 10.00 [facility] 1 Calcium, 24 hour Urine 63 <200 mg/24 hr [facility] 1 Oxalate, 24 hour Urine 73(H) 20 - 40 mg/24 hr [facility] 1 Comment:The urine Ox result was verified by repeat analysis. Citrate, 24 hour Urine 481(L) >550 mg/24 hr [facility] 1 CALCIUM PHOSPHATE SATURATION 0.61 0.50 - 2.00 [facility] 1 pH of 24 hour Urine 6.478(H) 5.800 - 6.200 [facility] 1 Urate, 24 hour Urine 0.21 <1.00 [facility] 1 Uric Acid (Urate), 24 Hour Urine 548 <750 mg/24 hr [facility] 1 Sodium, 24 hour Urine 190(H) 50 - 150 mmol/24 hr [facility] 1 Potassium, 24 hour Urine 55 20 - 100 mmol/24 hr [facility] 1 Magnesium, 24 hour Urine 12(L) 30 - 120 mg/24 hr [facility] 1 Phosphate, 24 hour Urine 1,167 600 - 1,200 mg/24 hr [facility] 1 AMMONIUM, URINE 15 15 - 60 mmol/24 hr [facility] 1 Chloride, 24 hour Urine 132 70 - 250 mmol/24 hr [facility] 1 Sulfate, 24 hour Urine 27 20 - 80 meq/24 hr [facility] 1 Urea nitrogen, 24 hour Urine (UUN) 6.74 6.00 - 14.00 g/24 hr [facility] 1 PROTEIN CATABOLIC RATE 0.8 0.8 - 1.4 g/kg/24 hr [facility] 1 Creatinine, 24 hour Urine 1,226 Not Applic. mg/24 hr [facility] 1 Comment: Note the excessive variation in creatinine excretion, suggesting a discrepancy in the collection process. The urine creatinine result was verified by repeat analysis. CREATININE / KG BODY WEIGHT 17.8 8.7 - 20.3 mg/24 hr/kg [facility] 1 Calcium/Kg Body Weight 0.9 <4.0 mg/24 hr/kg [facility] 1 RATIO CALCIUM TO CREATININE UA 52 51 - 262 mg/g creat [facility] 1 COMMENT Note [facility] 1 PDF . [facility] 1 06/29/2024 7:00 AM CDT 07/04/2024 11:00 PM CDT Narrative [facility] - 07/06/2024 2:07 AM CDT Performed at: - [address] [id number] Senior Wind Turbine Technician: Jovan Alejo PhD, Phone: [phone] us Jim Valle MD LAB URINE ORDERABLES Edited Resu lt - Final [facility] 1 from Last 3 Months Insurance [facility]
--- OUTSIDE RECORDS SUMMARY | 2024-07-13 09:18 | XMS_ITS | Encounter Summary ---
Author Organization [facility] Address [address] [place] [address] Phone Care Team Providers Care Surface Supervisor Name Role Phone Mike Zuniga MD Primary Care Provider Encounter Details Date Type Department Care Team (Late st Contact Info) Description 03/15/2016 Scanned Document Non [facility] Referring Docs Mike Zuniga MD [address] [place], [place] [address] Social History Tobacco Use Types Packs/Day Years [...] on filedocumented in this encounter Care Teams Surface Supervisor Relationship Specialty Start Date End Date Mike Zuniga MD [address] [place], [place] [id number] PCP - General Family Medicine 12/01/15 documented as of this encounter
--- OUTSIDE RECORDS SUMMARY | 2024-07-13 09:18 | XMS_ITS | Clinical Summary ---
[facility] Organization [facility] Address [address] [place] [address] Phone Care Team Providers Care Pipe Stripper Name Role Phone Mike Zuniga MD Primary Care Provider [phone] Allergies No known active allergies Medications DULoxetine (CYMBALTA) 30 mg capsule Take 90 mg by mouth every day Active esomeprazole (NEXIUM) 40 mg capsule Take 40 mg by mouth 2 (two) times daily Active lisinopril 10 mg tablet Take 10 mg by mouth once daily in the morning Active potassium citrate (UROCIT-K) 10 mEq (1,080 mg) extended release tablet Take 10 mEq by mouth 2 (two) times daily Take with meals or within 30 minutes after meals or bedtime snack. Active atorvastatin (LIPITOR) 80 mg tablet Take 80 mg by mouth daily at bedtime Active zolpidem (AMBIEN) 10 mg tablet Take 20 mg by mouth daily at bedtime Active levothyroxine (SYNTHROID) 75 mcg tablet TAKE 1 TABLET BY MOUTH DAILY 1 8 Active lubiprostone (AMITIZA) 8 mcg capsuleIndication s:chronic idiopathic constipation Take 1 capsule (8 mcg total) by mouth 2 (two) times daily with meals 180 capsule 3 8 Active linaclotide (LINZESS) 145 mcg capsuleIndication s:Constipation, unspecified constipation type Take 145 mcg by mouth every day 90 capsule 3 9 Active Active Problems Problem Noted Date Diagnosed Date Inflammatory bowel diseases (IBD) 12/01/2015 GERD (gastroesophageal reflux disease) 6 Hypothyroidism 12/01/2015 HTN (hypertension) 12/01/2015 PUD (peptic ulcer disease) 12/01/2015 HLD (hyperlipidemia) 12/01/2015 Anxiety and depression 12/01/2015 Nephrolithiasis 12/01/2015 Hematochezia Resolved Problems Problem Noted Date Diagnosed Date Resolved Date Generalized abdominal pain 12/01/2015 1 Immunizations Immunization Administration Dates Next Due Influenza (Flu Quad PF) 12/02/2015 Social History Tobacco Use Types Packs/Day [...] Sign Reading Time Taken Comments Blood Pressure 136/70 02/09/2018 11:[address] [facility] Pulse 81 02/09/2018 11:[address] [facility] Temperature 37.1 C (98.7 F) 02/09/2018 11:[address] [facility] Respiratory Rate 16 01/01/2016 3:[address] [facility] Oxygen Saturation 98% 01/01/2016 3:[address] [facility] Inhaled Oxygen Concentration - - Weight 70.1 kg (154 lb 8 oz) 02/09/2018 11:[address] [facility] Height 170.2 cm (5' 7 ) 02/09/2018 11:[address] [facility] Body Mass Index 24.2 02/09/2018 11:[address] [facility] Plan of Treatment Health Maintenance Due Date Last Done Comments MMR Vaccines (1 of 1 - Standard series) 1970 DTaP/Tdap/Td Vaccines (1 - Tdap) 1988 Hepatitis B Vaccines (1 of 3 - 19+ 3-dose series) 1988 Pap Smear 1990 Cervical Cancer Screening 11/07/1999 HPV/Co-Testing 11/07/1999 Breast Cancer Screening 2009 CT Colonography 2014 FIT-DNA (Cologuard) 2014 Fecal Immunochemical Testing (FIT) 2014 Fecal Occult Blood (FOBT) 2014 HCPOA Document on File 11/07/2019 Pneumococcal Vaccines (50+) (1 of 1 - PCV) 11/07/2019 Zoster (Shingles) Vaccine (1 of 2) 11/07/2019 Lipid Panel 12/01/2020 12/02/2015 Diagnostic Colonoscopy 12/03/2020 6, 12/03/2015, 12/03/2015, Additional history exists Flexible Sigmoidoscopy 12/31/2020 01/01/2016, 2015 Screening for Diabetes 02/09/2021 8, 12/04/2015, 12/03/2015, Additional history exists COVID-19 Vaccine ( season) 2023 Influenza Vaccine (Season Ended) 2024 12/02/2015 Colorectal Cancer Screening 12/03/2025 Screening Colonoscopy 12/03/2025 12/04/2015 , 12/03/2015, 12/03/2015, Additional history exists HIB Vaccines Aged Out No longer eligi ble based on patient's age to complete this topic HPV Vaccines Aged Out No longer eligi ble based on patient's age to complete this topic Hepatitis A Vaccines Aged Out No long er eligible based on patient's age to complete this topic IPV Vaccines Aged Out No longer eligi ble based on patient's age to complete this topic Meningococcal B Vaccine Aged Out No l onger eligible based on patient's age to complete this topic Meningococcal Vaccine (ACWY) Aged Out No longer eligible based on patient's age to complete this topic Rotavirus Vaccines Aged Out No longer eligible based on patient's age to complete this topic Procedures Procedure Name Priority Date/Time Associated Diagnosis Comments COMPREHENSIVE METABOLIC PANEL Routine 02/09/2018 12:[address] [facility] Generalized abdominal pain SIGMOID FLEX W/ SEDATION [facility] 01/01/2016 2:[address] [facility] COLONOSCOPY 12/04/2015 3:23 PM CDT LIPID PANEL Routine 12/02/2015 10:01 AM CDT from Last 3 Months or Most Recently Relevant to Health Maintenance Results * (ABNORMAL) COMPREHENSIVE METABOLIC PANEL (02/09/2018 12:[address] [facility]) CALCIUM 9.1 8.5 - 10.1 mg/dL [facility] GLUCOSE 90 60 - 99 mg/dL [facility] BUN 10 7 - 18 mg/dL [facility] CREATININE 0.86 0.55 - 1.02 mg/dL [facility] TOTAL PROTEIN 7.5 6.4 - 8.2 g/dL [facility] ALBUMIN 3.9 3.4 - 5.0 g/dL [facility] BILIRUBIN, TOTAL 0.3 0.2 - 1.0 mg/dL [facility] AST 21 15 - 37 U/L [facility] ALT 48 12 - 78 U/L [facility] ALKALINE PHOSPHATASE 126(H) 45 - 117 U/L [facility] SODIUM 139 136 - 145 mmol/L [facility] POTASSIUM 3.7 3.5 - 5.1 mmol/L [facility] CHLORIDE 105 98 - 107 mmol/L [facility] CO2 29.9 21.0 - 32.0 mmol/L [facility] Comment:[facility], [address] [place] [address] 02/09/2018 12:[address] [facility] 02/09/2018 2:[address] [facility] us Adela Rosen Rudolph OUT PATIENT THERAPIST HEM/CHEM/IMMUN-BLOO D Final Result Performing Organization Address City/State/[facility] Co de Phone Number [facility] [address] [place] [phone] * SIGMOID FLEX W/ SEDATION [facility] (01/01/2016 2:[address] [facility]) REPORT COMPONENT Attending MD: Marion Storm MD Procedure: Flexible Sigmoidoscopy [facility] REPORT COMPONENT Findings: The rectum, sigmoid colon and descending colon appeared normal. Biopsies were taken with a cold forceps for histology. Internal hemorrhoids were found during retroflexion. [facility] REPORT COMPONENT Recommendation: - Pathology results will be available online on [employer] within 2 weeks. My office will contact you regarding pathology results if I recommend a change in management based on the final pathology results. If you have not seen the results on My[employer] within 2 weeks please call my office at [phone]. - Resume previous diet. - Medication reconciliation was performed, and a list of the patient's discharge medications was provided to the patient. - Patient has a contact number available for emergencies. The signs and symptoms of potential delayed complications were discussed with the patient. Return to normal activities tomorrow. Written discharge instructions were provided to the patient. - The patient is in stable condition. Observe the patient post-procedure until all discharge criteria are met, then discharge patient to home with an escort. [facility] Anatomical Region Laterality Modality Other 01/01/2016 2:[address] [facility] Impressions 01/01/2016 3:[address] [facility] Impression: - The rectum, sigmoid colon and descending colon are normal. Biopsied. Patient likely had an acute case of infectious colitis last month. I think ischemic colitis is less likely since the endoscopic inflammation involved the rectum. I think inflammatory bowel disease is highly unlikely given the rapid improvement without treatment and the lack of chronic changes on the biopsies (she took Lialda and Rowasa for one day after discharge). - Internal hemorrhoids. Narrative 01/01/2016 3:[address] [facility] Patient Name: Nicole Mak Procedure Date: 01/01/2016 2:35 PM Gender: Female Date of : 1970 Indications: Hematochezia Medicines: Fentanyl 75 micrograms IV, Midazolam 8 mg IV, Sedation Administered by an Endoscopy Nurse, The level of sedation administered was moderate Estimated Blood Loss: EBL None. No blood products given. Grafts/Implants: None Complications: No immediate complications. Procedure: Pre-Anesthesia Assessment: - Prior to the procedure, a History and Physical was performed, and patient medications and allergies were reviewed. The patient's tolerance of previous anesthesia was also reviewed. The risks and benefits of the procedure and the sedation options and risks were discussed with the patient. All questions were answered, and informed consent was obtained. Prior Anticoagulants: The patient has taken no previous anticoagulant or antiplatelet agents. ASA Grade Assessment: II - A patient with mild systemic disease. After reviewing the risks and benefits, the patient was deemed in satisfactory condition to undergo the procedure. After obtaining informed consent, the endoscope was passed under direct vision. Throughout the procedure, the patient's blood pressure, pulse, and oxygen saturations were monitored continuously. The Flexible sigmoidoscope was introduced through the anus and advanced to the left transverse colon. After obtaining informed consent, the endoscope was passed under direct vision. Throughout the procedure, the patient's blood pressure, pulse, and oxygen saturations were monitored continuously.The colonoscopy was performed without difficulty. The patient tolerated the procedure well. The ileocecal valve, appendiceal orifice, and rectum were photographed. The quality of the bowel preparation was adequate to identify polyps. Providers: Marion Storm MD Procedure Code(s): --- Technical --- 15471, Sigmoidoscopy, flexible; with biopsy, single or multiple Diagnosis Code(s): --- Technical --- K64.8, Other hemorrhoids K92.1, Melena (includes Hematochezia) CPT copyright 2015 [employer]. All rights reserved. The codes documented in this report are preliminary and upon shoulder sawyer review may be revised to meet current compliance requirements. Attending Participation: I personally performed the entire procedure. Marion Storm MD 01/01/2016 3:18:15 PM Electronically signed and Authenticated by Marion Storm MD Number of Addenda: 0 Note Initiated On: 01/01/2016 2:35 PM us Marion Storm MD GI PROCEDURES Final Result * (ABNORMAL) LIPID PANEL (12/02/2015 10:01 AM CDT) CHOLESTEROL, TOTAL 133 <200 mg/dL [facility] TRIGLYCERIDES 159(A) <150 mg/dL [facility] HDL CHOLESTEROL 32(L) 40 - 59 mg/dL [facility] LDL CHOLESTEROL 69 <100 mg/dL [facility] Comment:[facility], [address] [place] [phone] 12/02/2015 10:0 1 AM CDT 12/02/2015 10:19 AM CDT us Kiki Powell MD HEM/CHEM/IMMUN-BLOOD Final Res ult [facility] [address] [place] [phone] from Last 3 Months or Most Recently Relevant to Health Maintenance Insurance [employer] [facility] Cross Blue Shield Commercial (POS, PPO, etc) Address: [place] [address] [employer] [facility] Cross Blue Shield Commercial (POS, PPO, etc) Address: [place] [address] Advance Directives For more information, please contact: [phone] * Full Code (Latest Code Status on File) Date Activated Date Inactivated Comments 12/01/2015 3:45 PM 12/04/2015 5:21 PM Care Teams Pipe Stripper Relationship Specialty Start Date End Date Mike Zuniga MD [facility] [address] [place] [address] PCP - General Family Medicine 12/01/15
--- OUTSIDE RECORDS SUMMARY | 2024-07-13 09:18 | XMS_ITS | Encounter Summary ---
Author Organization [facility] Address [address] [place] [address] Care Team Providers Care Beef Killer Name Role Phone Mike Zuniga MD Primary Care Provider [phone] Vianey Salmeron MD Unavailable Encounter Details Date Type Department Care Team (Late st Contact Info) Description 01/28/2020 Telephone [facility] - Interventional Radiology [facility] [place] [address] Judie Claudio RN Social History Tobacco Use Types Packs/Day Years Used Date Smoking Tobacco: Every Day Cigarettes 0.8 30 Smokeless Tobacco: Never Alcohol Use Standard Drinks/Week Comments Not Currently 0 (1 standard drink = 0.6 oz pur e alcohol) Comments No Sex and Gender Information Value Date Recorded Sex Assigned at Not on file Legal Sex Female 7:24 PM MOLDER Gender Identity Not on file Sexual Orientation Not on file documented as of this encounter Plan of Treatment Not on file documented as of this encounter Visit Diagnoses Not on filedocumented in this encounter Care Teams Beef Killer Relationship Specialty Start Date End Date Mike Zuniga MD [address] [place], [place] [phone] PCP - General 11/22/19 Vianey Salmeron MD [address] [place] [address] Consulting Physician Urology 01/10/20 documented as of this encounter
--- OUTSIDE RECORDS SUMMARY | 2024-07-13 09:18 | XMS_ITS | Referral Summary ---
Author Organization [facility] Address [address] [place] [address] Care Team Providers Care Supervisor Metal Cans Name Role Phone Mike Zuniga MD Primary Care Provider [phone] Vianey Salmeron MD Unavailable [phone] Allergies No known active allergies Medications lisinopriL (PRINIVIL,ZESTR IL) 10 mg tablet Take 1 tablet (10 mg total) by mouth daily Active ezetimibe (ZETIA) 10 mg tablet Take 1 tablet (10 mg total) by mouth daily Active esomeprazole DR (NexIUM) 40 mg capsule Take 1 capsule (40 mg total) by mouth 2 (two) times a day Active DULoxetine DR (CYMBALTA) 60 mg capsule Take 1 capsule (60 mg total) by mouth 2 (two) times a day Active potassium citrate ER (UROCIT-K) 10 mEq (1,080 mg) CR tablet Take 1 tablet (10 mEq total) by mouth 2 (two) times a day Active atorvastatin (LIPITOR) 80 mg tablet Take 1 tablet (80 mg total) by mouth daily Active levothyroxine (Euthyrox) 75 mcg tablet Take 1 tablet (75 mcg total) by mouth inspector hairspring truing before breakfast Active zolpidem (AMBIEN) 10 mg tabletIndicatio ns:Sleep-Onset Insomnia Take 1 tablet (10 mg total) by mouth nightly Active oxyBUTYnin (DITROPAN) 5 mg tablet Take 1 tablet (5 mg total) by mouth 3 (three) times a day as needed (bladder spasms) 30 tablet 4 Active Active Problems Problem Noted Date Diagnosed Date Right kidney stone 01/25/2020 HTN (hypertension) 01/25/2020 HLD (hyperlipidemia) 01/25/2020 GERD (gastroesophageal reflux disease) 0 Social History Tobacco Use Types Packs/Day Years Used Date Smoking Tobacco: Every Day Cigarettes 0.8 30 Smokeless Tobacco: Never Alcohol Use Standard Drinks/Week Comments Not Currently 0 (1 standard drink = 0.6 oz pur e alcohol) AUDIT-C Answer Date Recorded Q1: How often do you have a drink containing alcohol? Never 04/13/2023 Q2: How many drinks containi ng alcohol do you have on a typical day when you are drinking? Patient does not drink 4 Q3: How often do you have si x or more drinks on one occasion? Never 04/13/2023 Personal Safety Answer Date Recorded Have you ever been in or are you currently in a harmful physical or emotional relationship or is someone making you feel afraid or unsafe? Denies 04/14/2023 Comments No Sex and Gender Information Value Date Recorded Sex Assigned at Not on file Legal Sex Female 7:24 PM ELECTRICAL TRYOUT PERSON Gender Identity Not on file Sexual Orientation Not on file Last Filed Vital Signs Vital Sign Reading Time Taken Comments Blood Pressure 125/72 04/14/2023 5:45 PM ELECTRICAL TRYOUT PERSON Pulse 70 04/14/2023 5:45 PM ELECTRICAL TRYOUT PERSON Temperature 36.5 C (97.7 F) 04/14/2023 4:25 PM ELECTRICAL TRYOUT PERSON Respiratory Rate 16 04/14/2023 5:45 PM ELECTRICAL TRYOUT PERSON Oxygen Saturation 96% 04/14/2023 5:45 PM ELECTRICAL TRYOUT PERSON Inhaled Oxygen Concentration - - Weight 69.4 kg (153 lb) 04/14/2023 12:34 PM ELECTRICAL TRYOUT PERSON Height 170.2 cm (5' 7 ) 04/14/2023 12:34 PM ELECTRICAL TRYOUT PERSON Body Mass Index 23.96 04/14/2023 12:34 PM ELECTRICAL TRYOUT PERSON Plan of Treatment Not on file Medical Devices Implanted Type Area Utilization Management Nurse Device Identifier Shelf Expiration Date Model / Serial / Lot [employer] 400-402 Rail Car Maintenance Mechanic Ii 5fr 100cm 1 Lumen Torqueable Luer Lock Hub Braid Wire Latex Free - [id number] Implanted:Qty: 1 on 01/08/2020 by Vianey Salmeron MD at [facility] Stent Left: Ureter [employer] 07/04/2021 400-402 / / [id number] Description:Left Kidney, Lef t Ureter to bladder [employer] 180-225 Contour 6fr 30cm Large Inner Lumen Low Profile Bladder Erasmo Taper Latex Free - [id number] Implanted:Qty: 1 on 01/10/2020 by Vianey Salmeron MD at [facility] Stent Left: Ureter [employer] 02/05/2022 180-225 / / [id number] Description:Left Stent from previous case explanted/removed at the beginning of the procedure. [employer] 180-225 Contour 6fr 30cm Large Inner Lumen Low Profile Bladder Erasmo Taper Latex Free - [id number] Implanted:Qty: 1 on 01/31/2020 by Vianey Salmeron MD at [facility] Stent [employer] 10/11/2022 180-225 / / [id number] [employer] Contour Vl 4.8fr 22-30cm Taper Tip Bladder Erasmo Low Profile Large Latex Free [id number] - [id number] Implanted:Qty: 1 on 03/31/2023 by Vianey Salmeron MD at [facility] Stent Right: Ureter [employer] 12/16/2025 [id number] / / [id number] [employer] Contour Vl 6fr 22-30cm Large Inner Lumen Low Profile Bladder Erasmo Latex Free [id number] - [id number] Implanted:Qty: 1 on 03/31/2023 by Vianey Salmeron MD at [facility] Stent Left: Ureter [employer] 11/11/2025 [id number] / / [id number] [employer] Contour Vl 6fr 22-30cm Large Inner Lumen Low Profile Bladder Erasmo Latex Free [id number] - Sna - [id number] Implanted:Qty: 1 on 04/14/2023 by Vianey Salmeron MD at [facility] N/A: Ureter [employer] 11/11/2025 [id number] / NA / [id number] Insurance [employer] [place] [address] [address] [place] [employer] [place] [employer] [place] Advance Directives For more information, please contact: [phone] * Full Code (Latest Code Status on File) Date Activated Date Inactivated Comments 01/29/2020 5:10 PM 02/01/2020 1:26 AM * Full Code Date Activated Date Inactivated Comments 01/08/2020 10:23 AM 01/10/2020 7:22 PM Care Teams Supervisor Metal Cans Relationship Specialty Start Date End Date Mike Zuniga MD [address] [place], [place] [id number] PCP - General 11/22/19 Vianey Salmeron MD [address] [place] [address] Consulting Physician Urology 01/10/20
--- OUTSIDE RECORDS SUMMARY | 2024-07-13 09:18 | XMS_ITS | Clinical Summary ---
Author Organization [facility] Address [address] [place] [address] Care Team Providers Care Machine Or Machinery Mechanic Name Role Phone Mike Zuniga MD Primary Care Provider [phone] Vianey Salmeron MD Unavailable [phone] Allergies No known active allergies Medications [...] 1 tablet (75 mcg total) by mouth supervisor cell maintenance before breakfast Active zolpidem (AMBIEN) 10 mg [...] (hyperlipidemia) 01/25/2020 GERD (gastroesophageal reflux disease) 0 Surgical History Surgery Date Site/Laterality Comments SECTION URETEROSCOPY multiple LITHOTRIPSY multiple NEPHROURETERAL STENT PLACEMENT NEW ACCESS LEFT 020 Left HYSTERECTOMY NEPHROURETERAL STENT PLACEMENT NEW ACCESS RIGHT Right Medical History Medical History Date Comments Left ureteral stone Tobacco use Anxiety HTN (hypertension) HLD (hyperlipidemia) Hypothyroid GERD (gastroesophageal reflux disease) History of stomach ulcers years ago , none currently Right ureteral stone Right kidney stone 01/25/2020 Social History Tobacco Use Types Packs/Day Years [...] you are drinking? Patient does not drink Q3: How often do you have si [...] on file Legal Sex Female 7:24 PM AIRFIELD ENGINEER OFFICER Gender Identity Not on file Sexual Orientation Not on file Obstetrics History Last Filed Vital Signs Vital Sign Reading Time Taken Comments Blood Pressure 125/72 04/14/2023 5:45 PM AIRFIELD ENGINEER OFFICER Pulse 70 04/14/2023 5:45 PM AIRFIELD ENGINEER OFFICER Temperature 36.5 C (97.7 F) 04/14/2023 4:25 PM AIRFIELD ENGINEER OFFICER Respiratory Rate 16 04/14/2023 5:45 PM AIRFIELD ENGINEER OFFICER Oxygen Saturation 96% 04/14/2023 5:45 PM AIRFIELD ENGINEER OFFICER Inhaled Oxygen Concentration - - Weight 69.4 kg (153 lb) 04/14/2023 12:34 PM AIRFIELD ENGINEER OFFICER Height 170.2 cm (5' 7 ) 04/14/2023 12:34 PM AIRFIELD ENGINEER OFFICER Body Mass Index 23.96 04/14/2023 12:34 PM AIRFIELD ENGINEER OFFICER Plan of Treatment Health Maintenance Due Date Last Done Comments Colon Cancer Screening-Colonoscopy 1969 Depression Screening 1969 Hepatitis C Screening 1969 Regular Well Visit/Exam 18-64 11/07/1987 Pneumococcal vaccine <65 (1 of 2 - PCV) 1988 DTaP/Tdap/Td Vaccine (1 - Tdap) 10/08/1995 6 Zoster Vaccine (1 of 2) 11/07/2019 Breast Cancer Screening-Mammogram 03/24/2023 023 Influenza Vaccine (Season Ended) 2024 12/02/19 Hepatitis B Screening Completed 06/19/1996 , 01/17/1996, 12/07/1995 Medical Devices Implanted Type Area Health And Nutrition Specialist Device Identifier Shelf Expiration Date Model / Serial / Lot [employer] 400-402 Automobile Repossessor Ii 5fr 100cm 1 Lumen Torqueable Luer Lock Hub Braid Wire Latex Free - [id number] Implanted:Qty: 1 on 01/08/2020 by Vianey Salmeron MD at [facility] Stent Left: Ureter [employer] 07/04/2021 400-402 / / [id number] Description:Left Kidney, Lef t Ureter to bladder [employer] 180-225 Contour 6fr 30cm Large Inner Lumen Low Profile Bladder Erasmo Taper Latex Free - [id number] Implanted:Qty: 1 on 01/10/2020 by Vianey Salmeron MD at [facility] Stent Left: Ureter [employer] 02/05/2022 180-225 / / [id number] Description:Left Stent from previous case explanted/removed at the beginning of the procedure. [employer] 180-225 Contour 6fr 30cm Large Inner Lumen Low Profile Bladder Erasmo Taper Latex Free - [id number] Implanted:Qty: 1 on 01/31/2020 by Vianey Salmeron MD at [facility] Stent [employer] 10/11/2022 180-225 / / [id number] [employer] Contour Vl 4.8fr 22-30cm Taper Tip Bladder Erasmo Low Profile Large Latex Free [id number] - [id number] Implanted:Qty: 1 on 03/31/2023 by Vianey Salmeron MD at [facility] Stent Right: Ureter [employer] 12/16/2025 [id number] / / [id number] [employer] Contour Vl 6fr 22-30cm Large Inner Lumen Low Profile Bladder Erasmo Latex Free [id number] - [id number] Implanted:Qty: 1 on 03/31/2023 by Vianey Salmeron MD at [facility] Stent Left: Ureter [employer] 11/11/2025 [id number] / / [id number] [employer] Contour Vl 6fr 22-30cm Large Inner Lumen Low Profile Bladder Erasmo Latex Free [id number] - Sna - [id number] Implanted:Qty: 1 on 04/14/2023 by Vianey Salmeron MD at [facility] N/A: Ureter [employer] 11/11/2025 [id number] / NA / [id number] [place] [place] [address] [place] OPEN ACCESS COUNTS INCLUDE 234 BEDS AT [facility] [employer] ID [employer] ACCESS ID Advance Directives For more information, please contact: [phone] * Full Code (Latest Code Status on File) Date Activated Date Inactivated Comments 01/29/2020 5:10 PM 02/01/2020 1:26 AM * Full Code Date Activated Date Inactivated Comments 01/08/2020 10:23 AM 01/10/2020 7:22 PM Care Teams Machine Or Machinery Mechanic Relationship Specialty Start Date End Date Mike Zuniga MD [address] [place] [address] PCP - General 11/22/19 Vianey Salmeron MD [address] [place] [address] Consulting Physician Urology 01/10/20
--- OUTSIDE RECORDS SUMMARY | 2024-07-13 09:18 | XMS_ITS | Encounter Summary ---
Author Organization [facility] Address [address] [place] [address] Phone Care Team Providers Care Road Packer Operator Name Role Phone Mike Zuniga MD Primary Care Provider [phone] Encounter Details Date Type Department Care Team (Late st Contact Info) Description 05/12/2018 Orders Only Initial Department Adela Galdamez APRN [address] [place] [address] Abdominal pain, unspecified abdominal location Social History Tobacco Use Types Packs/Day Years [...] on file documented as of this encounter Procedures Procedure Name Priority Date/Time Associated Diagnosis Comments XR KUB Routine 02/16/2018 10:00 AM TEMPERATURE REGULATOR Abdominal pain, unspecified abdominal location documented in this encounter Results * XR KUB (02/16/2018 10:00 AM TEMPERATURE REGULATOR) Anatomical Region Laterality Modality Abdomen N/A Computed Radiogr aphy us Adelasalud Galdamez APRN PORTABLE X-RAY Fin al Result documented in this encounter Visit Diagnoses Diagnosis Abdominal pain, unspecified abdominal location documented in this encounter Care Teams Road Packer Operator Relationship Specialty Start Date End Date Mike Zuniga MD [address] [place] [address] PCP - General Family Medicine 12/01/15 documented as of this encounter
--- OUTSIDE RECORDS SUMMARY | 2024-07-13 09:18 | XMS_ITS | Encounter Summary ---
Author Organization [facility] Address [address] [place] [address] Phone Care Team Providers Care Shipping/Receiving Manager Name Role Phone Mike Zuniga MD Primary Care Provider [phone] Encounter Details Date Type Department Care Team (Late st Contact Info) Description 03/02/2018 Scanned Document Non [facility] Referring Docs Igor Francis MD [address] [place] [address] [address], [place] [id number] Social History Tobacco Use Types Packs/Day Years [...] on filedocumented in this encounter Care Teams Shipping/Receiving Manager Relationship Specialty Start Date End Date Mike Zuniga MD [facility] [address] [place] [address] [address] [place] [address] PCP - General Family Medicine 12/01/15 documented as of this encounter
--- OUTSIDE RECORDS SUMMARY | 2024-07-13 09:18 | XMS_ITS | Clinical Summary ---
Author Organization [facility] Address [address] [place] [address] Care Team Providers Care Rotary Pump Operator Name Role Phone Mike Zuniga MD Primary Care Provider [phone] Source Comments [facility],non-owned Affiliates and Associated Physician Practices is amultiple site organization consisting of ambulatory clinics and hospital sitesin [place], [place], [place]. This disclosure is being madepursuant to the Care Everywhere program and may not contain all information available regarding this patient. Last updated 17.[facility] Active Problems Problem Noted Date Diagnosed Date Encounter for screening labo ratory testing for COVID-19 virus 03/03/2021 COVID 03/03/2021 Sore throat 11/11/2020 Encounters Date Type Department Care Team Description 06/08/2024 9:02 AM CDT - 06/08/2024 11:59 PM CDT Hospital Encounter [facility] - Laboratory [address] [place] [id number] Patricio Bolanos PA-C Discharge Disposition: Home or Self Care 05/18/2024 9:00 AM CDT - 05/18/2024 11:59 PM CDT Hospital Encounter [facility] - Laboratory [address] [place] [id number] Mike Zuniga MD Discharge Disposition: Home or Self Care 04/27/2024 Orders Only [facility] - Laboratory [address] [place] [id number] Jim Valle MD Nephrolithiasis from Last 3 Months Social History Tobacco Use Types Packs/Day Years Used Date Smoking Tobacco: Never Assessed Comments Unknown Sex and Gender Information Value Date Recorded Sex Assigned at Not on file Legal Sex Female 8:11 AM CDT Gender Identity Not on file Sexual Orientation Not on file Plan of Treatment Health Maintenance Due Date Last Done Comments COLOGUARD (AGES 45-75) - COLON CA SCREENING 1969 COLON MONITORING 1969 COLONOSCOPY - COLON CA SCREENING 1969 CT COLONOGRAPHY - COLON CA SCREENING 1969 Colorectal Cancer Screening 1969 FIT - COLON CA SCREENING 1969 FLEX SIG - COLON CA SCREENING 1969 PAP SMEAR 1969 HIV SCREENING 1984 HEPATITIS C SCREENING 11/02/1987 DTAP/TDAP/TD VACCINES (1 - Tdap) 1988 HEPATITIS B VACCINE (1 of 3 - 19+ 3-dose series) 1988 PNEUMOCOCCAL VACCINE 50+ (1 of 2 - PCV) 1988 ZOSTER VACCINE (1 of 2) 11/07/2019 COVID-19 VACCINE (3 - 2023- season) 2023 04/03/2020, 03/06/2020 DEPRESSION SCREENING 02/22/2024 MAMMOGRAM 03/24/2024 03/24/2022 INFLUENZA VACCINE (Season Ended) 2024 12/02/2015 LIPID TESTING 05/18/2029 05/18/2024, 11/0 08/2023, 06/14/2022, Additional history exists HIB VACCINE Aged Out No longer eligi ble based on patient's age to complete this topic HPV VACCINE Aged Out No longer eligi ble based on patient's age to complete this topic MENINGOCOCCAL (Group B) VACCINE SHARED DECISION-MAKING Aged Out No longer eligible based on patient's age to complete this topic MENINGOCOCCAL GROUPS A/C/Y/W VACCINE Aged Out No longer eligible based on patient's age to complete this topic Procedures Procedure Name Priority Date/Time Associated Diagnosis Comments RENAL FUNCTION PANEL Routine 06/08/2024 9:10 AM CDT Nephrolithiasis CBC W AUTO DIFFERENTIAL Routine 05/18/2024 9:08 AM CDT Encounter for general adult medical examination w/o abnormal findings COMPREHENSIVE METABOLIC PANEL Routine 05/18/2024 9:08 AM CDT Encounter for general adult medical examination w/o abnormal findings LIPID PROFILE Routine 05/18/2024 9:08 AM CDT Encounter for general adult medical examination w/o abnormal findings TSH Routine 05/18/2024 9:08 AM CDT Encounter for general adult medical examination w/o abnormal findings HEMOGLOBIN A1C Routine 05/18/2024 9:08 AM CDT Encounter for general adult medical examination w/o abnormal findings MAMMO BILAT SCREENING Routine 03/24/2022 3:21 PM HEAD AND NECK SURGEON Breast cancer screening by mammogram from Last 3 Months or Most Recently Relevant to Health Maintenance Results * (ABNORMAL) RENAL FUNCTION PANEL (06/08/2024 9:10 AM CDT) Glucose 108(H) 70 - 100 mg/dL 06/08/2024 9:42 AM CDT [facility] ([facility]) BUN 12 7 - 17 mg/dL 06/08/2024 9:42 AM CDT [facility] Creatinine 0.90 0.52 - 1.04 mg/dL 06/08/2024 9:42 AM CDT [facility] Calcium 8.9 8.4 - 10.2 mg/dL 06/08/2024 9:42 AM CDT [facility] Albumin 4.2 3.5 - 5.0 g/dL 06/08/2024 9:42 AM CDT [facility] Phosphorus 3.6 2.4 - 4.5 mg/dL 06/08/2024 9:42 AM CDT [facility] ([facility] Sodium 139 137 - 145 mmol/L 06/08/2024 9:42 AM CDT [facility] Potassium 4.0 3.5 - 5.1 mmol/L 06/08/2024 9:42 AM CDT [facility] ([facility]) Chloride 103 98 - 107 mmol/L 06/08/2024 9:42 AM CDT [facility] CO2 30 22 - 30 mmol/L 06/08/2024 9:42 AM CDT [facility] ([facility] eGFR >60 >60 mL/min/1.73 m2 06/08/2024 9:42 AM CDT [facility]) Blood BLOOD SPECIMEN / Unknown Lab Venipuncture / Unknown 06/08/2024 9:10 AM CDT 06/08/2024 9:10 AM CDT Naomi GERBER [facility] ([facility]) - 06/08/2024 9:42 AM CDT It is recommended that for: GFR values greater than 60 mL/min/1.73 sq.meters - no additional renal evaluation is required. GFR values less than 60 mL/min/1.73 sq.meters - complete evaluation for renal disease. GFR values less than 30 mL/min/1.73 sq.meters - consultation with a Cavalry Scout. The GFR result was calculated using the MDRD Equation. Jim Valle MD LAB - CHEMISTRY ORDERABLES Fin al Result ZABRINA [facility] ([facility]) [address] [place] [address] * (ABNORMAL) HEMOGLOBIN A1C (05/18/2024 9:08 AM CDT) Hemoglobin A1c 6.2(H) 4.8 - 5.6 % 05/18/2024 9:42 AM CDT [facility] ([facility]) Estimated Average Glucose 131 mg/dL 05/18/2024 9:42 AM CDT [facility] ([facility]) Blood BLOOD SPECIMEN / Unknown Lab Venipuncture / Unknown 05/18/2024 9:08 AM CDT 05/18/2024 9:08 AM CDT Naomi GERBER [facility] ([facility]) - 05/18/2024 9:42 AM CDT Pre-diabetes: 5.7-6.4 Diabetes: >6.4 Glycemic Control for Adults with Diabetes: <7.0 us Mike Zuniga MD LAB - CHEMISTRY ORDERABLES Final Result [facility] ([facility]) [address] [place] [address] * (ABNORMAL) CBC WITH DIFFERENTIAL (05/18/2024 9:08 AM CDT) WBC 6.1 4.5 - 10.5 K/uL 05/18/2024 9:45 AM CDT [facility] RBC 4.41 3.58 - 4.78 M/uL 05/18/2024 9:45 AM CDT [facility] Hemoglobin 13.7 11.6 - 16.0 g/dL 05/18/2024 9:45 AM CDT [facility]) Hematocrit 40.4 35.0 - 48.0 % 05/18/2024 9:45 AM CDT [facility] ([facility]) Platelet Count 394(H) 141 - 380 K/uL 05/18/2024 9:45 AM CDT [facility]) Comment:Occasional Large Bettie telets MCV 91.6 83.1 - 97.1 fl 05/18/2024 9:45 AM CDT [facility] MCH 31.1 28.6 - 32.6 pg 05/18/2024 9:45 AM CDT [facility] MCHC 33.9 32.0 - 36.0 g/dL 05/18/2024 9:45 AM CDT [facility] RDW 12.5 11.6 - 15.6 % 05/18/2024 9:45 AM CDT [facility] Neutrophils % 56.9 50.0 - 70.0 % 05/18/2024 9:45 AM CDT [facility] Lymphocytes % 32.6 18.0 - 38.0 % 05/18/2024 9:45 AM CDT [facility] Monocytes % 6.6 4.0 - 12.0 % 05/18/2024 9:45 AM CDT [facility] Eosinophils % 3.1 1.1 - 6.1 % 05/18/2024 9:45 AM CDT [facility] Basophils % 0.5 0.0 - 1.7 % 05/18/2024 9:45 AM CDT [facility] Neutrophils Absolute 3.4 3.3 - 5.7 x10(9)/L 05/18/2024 9:45 AM CDT [facility] Immature Granulocytes % 0.30 0.00 - 0.43 % 05/18/2024 9:45 AM CDT [facility]) Blood BLOOD SPECIMEN / Unknown Lab Venipuncture / Unknown 05/18/2024 9:08 AM CDT 05/18/2024 9:08 AM CDT Mike Zuniga MD LAB - HEMATOLOGY ORDERABLES Kathi beck Result [facility] ([facility]) [address] [place] [address] * (ABNORMAL) COMPREHENSIVE METABOLIC PANEL (05/18/2024 9:08 AM CDT) Glucose 123(H) 70 - 100 mg/dL 05/18/2024 9:45 AM CDT [facility] BUN 12 7 - 17 mg/dL 05/18/2024 9:45 AM T [facility] Creatinine 1.00 0.52 - 1.04 mg/dL 05/18/2024 9:45 AM CDT [facility] Sodium 138 137 - 145 mmol/L 05/18/2024 9:45 AM CDT [facility] Potassium 4.1 3.5 - 5.1 mmol/L 05/18/2024 9:45 AM CDT [facility]) Chloride 104 98 - 107 mmol/L 05/18/2024 9:45 AM CDT [facility] ([facility]) CO2 28 22 - 30 mmol/L 05/18/2024 9:45 AM CDT [facility]) Bilirubin Total 0.5 0.2 - 1.3 mg/dL 05/18/2024 9:45 AM CDT [facility] Calcium 9.3 8.4 - 10.2 mg/dL 05/18/2024 9:45 AM T [facility] Protein Total 6.8 6.3 - 8.2 g/dL 05/18/2024 9:45 AM T [facility] Albumin 4.2 3.5 - 5.0 g/dL 05/18/2024 9:45 AM T [facility] AST 23 14 - 36 U/L 05/18/2024 9:45 AM T [facility] ALT 27 0 - 35 U/L 05/18/2024 9:45 AM T [facility] ([facility]) Alkaline Phosphatase 112 38 - 126 U/L 05/18/2024 9:45 AM T [facility] ([facility]) Globulin Total 2.6 2.3 - 4.2 gm/dL 05/18/2024 9:45 AM T [facility] ([facility]) Albumin/Globulin Ratio 1.6 1.0 - 2.2 Ratio 05/18/2024 9:45 AM [facility] ([facility]) eGFR 58(L) >60 mL/min/1.7 3 m2 05/18/2024 9:45 AM T [facility] ([facility]) Blood BLOOD SPECIMEN / Unknown Lab Venipuncture / Unknown 05/18/2024 9:08 AM CDT 05/18/2024 9:08 AM CDT Narrative [facility] ([facility]) - 05/18/2024 9:45 AM CDT It is recommended that for: GFR values greater than 60 mL/min/1.73 sq.meters - no additional renal evaluation is required. GFR values less than 60 mL/min/1.73 sq.meters - complete evaluation for renal disease. GFR values less than 30 mL/min/1.73 sq.meters - consultation with a Cavalry Scout. us Mike Zuniga MD LAB - CHEMISTRY ORDERABLES Final Result [facility] ([facility]) [address] [place] [address] * TSH (05/18/2024 9:08 AM CDT) TSH 0.554 0.470 - 4.680 mIU/L 05/18/2024 10:14 AM CDT [facility]) Comment:Biotin levels higher than the recommended daily dose may cause interference with test results Blood BLOOD SPECIMEN / Unknown Lab Venipuncture / Unknown 05/18/2024 9:08 AM CDT 05/18/2024 9:08 AM CDT Mike Zuniga MD LAB - CHEMISTRY ORDERABLES Final Result [facility] ([facility]) [address] [place] [address] * (ABNORMAL) LIPID PROFILE (05/18/2024 9:08 AM CDT) Pathologist [facility] Cholesterol Total 171 0 - 200 mg/dL 05/18/2024 9:45 AM CDT [facility] ([facility]) Triglycerides 147 30 - 150 mg/dL 05/18/2024 9:45 AM CDT [facility] ([facility]) HDL 46 40 - 60 mg/dL 05/18/2024 9:45 AM CDT [facility] ([facility]) Chol HDL Ratio 3.7 0 - 4.5 % 05/18/2024 9:45 AM CDT [facility]) LDL Calculated 96 0-100 mg/dL mg/dL 05/18/2024 9:45 AM CDT [facility] ([facility]) VLDL Calculated 29 0-30 mg/dL mg/dL 05/18/2024 9:45 AM CDT [facility] ([facility]) Non HDL Cholesterol 125(H) 0-120 mg/dL mg/dL 05/18/2024 9:45 AM CDT [facility] ([facility]) Blood BLOOD SPECIMEN / Unknown Lab Venipuncture / Unknown 05/18/2024 9:08 AM CDT 05/18/2024 9:08 AM CDT Mike Zuniga MD LAB - CHEMISTRY ORDERABLES Final Result [facility] ([facility]) [address] [place] [address] * MAMMO BILAT SCREENING (03/24/2022 3:21 PM HEAD AND NECK SURGEON) Anatomical Region Laterality Modality Breast Bilateral Mammography 03/24/2022 3:25 PM HEAD AND NECK SURGEON Impressions 03/24/2022 4:41 PM HEAD AND NECK SURGEON IMPRESSION: BI-RAD 0 ADDITIONAL IMAGING EVALUATION NEEDED The 6 mm round focal asymmetry in the left breast is indeterminate. An ultrasound is recommended. An immediate follow-up is recommended. A letter will be sent to the patient with these results. Electronically signed by: Tabitha jones/peng:03/24/2022 16:41:54 Solar Site Assessment Specialist(s): RT Leticia(R)(M), [facility] letter sent: Additional Imaging Reading location: [facility] BI-RADS: 0 Additional Imaging Evaluation Needed Narrative 03/24/2022 4:41 PM HEAD AND NECK SURGEON - MAMMO BILAT SCREENING BILATERAL DIGITAL SCREENING MAMMOGRAM 3D/2D WITH CAD WITH MEDIOLATERAL OBLIQUE CRANIOCAUDAL: 03/24/2022 The study was acquired using full field digital technology and interpreted from soft copy. Current study was also evaluated with ICAD version 7.2. 2D digital mammographic views, as well as 3D digital tomosynthesis were performed in the CC and MLO projections. CLINICAL: Routine Screening. No Complaints. No Personal History Of Cancer. Family History Of Breast Cancer. COMPARISONS: Comparison is made to exams dated: 06/14/2016, 12/22/2015, 12/16/2015 [facility], and 12/07/2010 [facility] BREAST TISSUE:The tissue of both breasts is heterogeneously dense. This may lower the sensitivity of mammography. FINDINGS: There is a 6 mm round focal asymmetry with a circumscribed margin in the left breast at 12 o'clock middle depth 5.5 cm from the nipple. No other significant masses, calcifications, or other findings are seen in either breast. Procedure Note Tabitha Linder MD - 03/25/2022 - MAMMO BILAT SCREENING BILATERAL DIGITAL SCREENING MAMMOGRAM 3D/2D WITH CAD WITH MEDIOLATERALOBLIQUE CRANIOCAUDAL: 03/24/2022 The study was acquired using full field digital technology and interpretedfrom soft copy. Current study was also evaluated with ICAD version 7.2. 2D digital mammographic views, as well as 3D digital tomosynthesis were performed in the CC and MLO projections. CLINICAL: Routine Screening. No Complaints. No Personal History Of Cancer. Family History Of Breast Cancer. COMPARISONS: Comparison is made to exams dated: 06/14/2016, 12/22/2015, 12/16/2015 [facility], and 12/07/2010 [facility] [facility]. BREAST TISSUE:The tissue of both breasts is heterogeneously dense. Thismay lower the sensitivity of mammography. FINDINGS: There is a 6 mm round focal asymmetry with a circumscribed margin in theleft breast at 12 o'clock middle depth 5.5 cm from the nipple. No other significant masses, calcifications, or other findings are seen in either breast. IMPRESSION IMPRESSION: BI-RAD 0 ADDITIONAL IMAGING EVALUATION NEEDED The 6 mm round focal asymmetry in the left breast is indeterminate. An ultrasound is recommended. An immediate follow-up is recommended. A letter will be sent to the patient with these results. Electronically signed by: Tabitha jones/peng:03/24/2022 16:41:54 Solar Site Assessment Specialist(s): RT Leticia(R)(M), [facility] letter sent: Additional Imaging Reading location: [facility] BI-RADS: 0 Additional Imaging Evaluation Needed Mike Zuniga MD MAMMO ORDERABLES Final Result from Last 3 Months or Most Recently Relevant to Health Maintenance Insurance [facility] * Guarantor: [employer] Account Type Relation to Patient Date of Phone Billing Address Personal/Family 1970 [address] [place] [address] Care Teams Rotary Pump Operator Relationship Specialty Start Date End Date Mike Zuniga MD [address] [place] [id number] PCP - General Family Medicine 02/18/20
--- OUTSIDE RECORDS SUMMARY | 2024-07-13 09:18 | XMS_ITS | Encounter Summary ---
Author Organization [facility] Address [address] [place] [address] Phone Care Team Providers Care Cte Teacher Name Role Phone Mike Zuniga MD Primary Care Provider [phone] Encounter Details Date Type Department Care Team ([facility] st Contact Info) Description 12/04/2015 Telephone [facility] 1st Floor Gastroenterology [address] [place], [place] [id number] Linsey Quintero, MANUFACTURING COORDINATOR [address] [place], [place] [id number] Social History Tobacco Use Types Packs/Day Years Used Date Smoking Tobacco: Never Assessed Comments Unknown Sex and Gender Information Value Date Recorded Sex Assigned at Not on file Legal Sex Female 12:21 PM CDT Gender Identity Not on file Sexual Orientation Not on file documented as of this encounter Miscellaneous Notes * Telephone Encounter - Linsey Quintero APRN - 12/04/2015 2:03 PM CDT Can we please schedule hospital follow up appt in the next 3-[address] Doe or MICHAEL for possible UC. She was discharged home on mesalamine. She would prefer to go to [place] if possible as that is closer to her home ([facility] documented in this encounter Plan of Treatment Not on file documented as of this encounter Visit Diagnoses Not on filedocumented in this encounter Care Teams Cte Teacher Relationship Specialty Start Date End Date Mike Zuniga MD [facility] [address] [place] [address] [address] [facility] [place] [address] PCP - General Family Medicine 12/01/15 documented as of this encounter
== END 2024-07-13 09:14 | disposition home or self-care (01) ==
PROVIDERS: Visit Provider Urology
DX: N20.0 Calculus of kidney (principal)
CPT/HCPCS: 74018

== ENCOUNTER 2025-01-07 08:58 | Emergency (ER) | payer OTHER, SELFPAY ==
--- NOTE | ~2025-01-07 | CT_ITS ---
EXAMINATION: CT abdomen pelvis w con DATE: 01/07/2025 12:56 INDICATION: Abdominal pain TECHNIQUE: Computed tomography (CT) of the abdomen and pelvis was performed with 100 mL Omnipaque-350 intravenous contrast. Automated exposure control and iterative reconstruction technique were employed. The dose-length product was 289.95 mGy-cm. COMPARISON: 02/03/2024 FINDINGS: Mild dependent atelectasis in the bilateral lower lobes. Heart size is normal. No pericardial or pleural effusion. Liver, gallbladder, spleen, pancreas and bilateral adrenal glands are normal. Bilateral nonobstructing nephrolithiasis with at least 7 stones in the right kidney measuring up to 7 mm and at least 10 stones in the left kidney measuring up to 5 mm. No ureteral stones or hydronephrosis. Bowels including the appendix are normal. Bladder is normal. The uterus is not identified and has likely been surgically resected. Bilateral adnexa are unremarkable. No free intraperitoneal gas or fluid. No pathologically enlarged abdominal or pelvic lymphadenopathy. Mild to moderate lumbar spondylosis. IMPRESSION: 1. Bilateral nonobstructing nephrolithiasis. No acute intra-abdominal/pelvic process. Reviewed, dictated and finalized at location A. TEGIC ACCOUNT DIRECTOR IMPRESSION: 1. Bilateral nonobstructing nephrolithiasis. No acute intra-abdominal/pelvic pr ocess.
[2025-01-07 09:06] VITALS: BP 120/67; PULSE 80; RESP 18; TEMP 36.3; O2SAT 100
[2025-01-07 11:59] VITALS: BP 118/73; PULSE 85; RESP 15; O2SAT 100
[2025-01-07 12:00] LABS: BEDSIDEPREGUCG Negative (Negative)
[2025-01-07 12:07] LABS: Hematocrit 44.7 % (37.0-47.0); Hemoglobin 14.5 g/dL (12.0-15.0); Immature Granulocyte Percent A 0.8 % (0-0.5); Lymphocytes Absolute Auto 3.16 K/mm3 (0.9-3.2); Mean Corpuscular HGB Conc 32.4 g/dl (32-36); Mean Corpuscular Hemoglobin 30.1 pg (26-34); Mean Corpuscular Volume 92.7 fl (80-100); Nucleated Red Blood Cells Absolute Auto 0.000 K/mm3 (0.0-0.012); Nucleated Red Blood Cells Perc 0.0 % (0.0-0.2); Platelet Count Result 270 k/mm3 (150-375); Red Blood Count 4.82 M/mm3 (4.2-5.4); White Blood Count 10.4 K/mm3 (4.5-10.0)
[2025-01-07 12:15] LABS: Add Urine Microscopic? YES; Appearance Urine Clear (Clear); Glucose Urine UA Negative (Negative); Leukocyte Esterase Ur Trace LEU/UL (Negative); Nitrate Urine Negative (Negative); Non Pathogenic Casts 0-2; Specific Grav Ur 1.013 (1.001-1.035)
--- NOTE | 2025-01-07 12:20 | ED.FEMALEGU ---
HPI - Female Genitourinary General Chief complaint: Urogenital-Female Stated complaint: I think I have a kidney stone Time Seen by Provider: 01/07/25 12:08 Source: patient Mode of arrival: ambulatory Limitations: no limitations History of Present Illness HPI Narrative: 54 years old white female complaining of mid lower back pain radiating to suprapubic area started 2 weeks ago she denies any fever, chills, nausea, vomiting, diarrhea, constipation, vaginal bleeding or discharge. History of kidney stone. Related Data Home Medications ?Medication ?Instructions ?Recorded ?Confirmed ?Last Taken ?Type atorvastatin 80 mg tablet 80 mg PO DAILY 10/23/19 02/07/23 02/07/23 History duloxetine 60 mg capsule,delayed 60 mg PO DAILY 10/23/19 02/07/23 02/07/23 History release esomeprazole magnesium 40 mg 40 mg PO BID 10/23/19 02/07/23 02/07/23 History capsule,delayed release ezetimibe 10 mg tablet 10 mg PO DAILY 10/23/19 02/07/23 02/07/23 History levothyroxine 75 mcg tablet 75 mcg PO DAILY 10/23/19 02/07/23 02/07/23 History (Euthyrox) lisinopril 10 mg tablet 10 mg PO DAILY 10/23/19 02/07/23 02/07/23 History potassium citrate 10 mEq (1,080 10 meq PO BID 10/23/19 02/07/23 02/07/23 History mg) tablet,extended release zolpidem 10 mg tablet 10 mg PO HS 10/23/19 02/07/23 02/06/23 History diclofenac sodium 75 mg 75 mg PO DAILY 02/07/23 02/07/23 Unknown History tablet,delayed release quetiapine 50 mg tablet 50 mg PO HS 02/07/23 02/07/23 Unknown History Allergies Allergy/AdvReac Type Severity Reaction Status Date / Time nitrofurantoin (From Allergy Rash Verified 01/07/25 11:58 Macrobid) Review of Systems Review of Systems: All systems reviewed & are unremarkable except as noted in HPI and below PMFSH Past Medical History Medical History HTN (hypertension) Hyperlipidemia Hypothyroidism Surgical History Surgical History Hx of cystoscopy Social History Social History Smoking packs per day: 1 Smoking cigarettes per day: 20.0 Years smoked: 35 Smoking pack-years: 35.00 Smoking status: Current every day smoker Tobacco type: cigarettes Alcohol intake: never Substance use: never Substance use type: does not use Living arrangements: with family Spiritual care concerns: No Exam Narrative: General appearance: Well-developed, well-nourished Skin: Normal color Head: Normocephalic, nontraumatic Eyes: Clear conjunctiva ENT: Oropharynx normal, ears normal, nose normal Neck: Supple, nontender Chest and respiratory: Airway patent, no respiratory distress, no accessory muscle use Heart: Regular rate/rhythm Abdomen: Soft, nontender, no organomegaly, quiet bowel sounds Vascular: Normal peripheral pulses, normal capillary refill. Musculoskeletal: Mild tenderness mid lumbar distally, no bruises, no swelling or rash Neurologic: Alert and oriented ?3, CRAFT COORDINATOR is normal as tested, no gross motor deficit Course Vital Signs Vital signs: Vital Signs Temperature 36.3 C L 01/07/25 09:06 Pulse Rate 80 01/07/25 09:06 Respiratory Rate 18 01/07/25 09:06 Blood Pressure 120/67 01/07/25 09:06 Pulse Oximetry 100 01/07/25 09:06 Oxygen Delivery Room Air 01/07/25 09:06 Temperature 36.3 C L 01/07/25 09:06 Pulse Rate 85 01/07/25 11:59 Respiratory Rate 15 01/07/25 11:59 Blood Pressure 118/73 01/07/25 11:59 Pulse Oximetry 100 01/07/25 11:59 Oxygen Delivery Room Air 01/07/25 09:06 MDM - Female Genitourinary MDM Narrative Medical decision making narrative: Patient complaining lower back pain radiating suprapubic area 2 weeks Vital signs are stable Physical examination showing mild tenderness midline lumbar back distally otherwise within normal limit Differential diagnosis included musculoskeletal, urinary tract infection, kidney stone, colitis, diverticulitis. Blood workup today includes CBC, CMP, lipase showed WBC 10.4, otherwise within normal limit Urinalysis showed no significant abnormality CT abdomen and pelvis with IV contrast showed bilateral nonobstructive nephrolithiasis. Diagnosis lower back pain, musculoskeletal is my concern. Discharged on diclofenac and cyclobenzaprine. The pt was discharged to home.the pt,s condition upon discharge was fair,education was provided to the pt in reference to the final impression,discharge study results,treatment,prognosis and need for follow up . Differential Diagnosis Differential diagnosis: Likely other (As above) Medical Records Attestation: I reviewed the patient's medical records. Lab Data Attestation: I reviewed the patient's lab results. 01/07/25 12:00 01/07/25 12:00 Labs: Lab Results 01/07/25 01/07/25 Range/Units 11:58 12:00 WBC 10.4 H (4.5-10.0) K/mm3 RBC 4.82 (4.2-5.4) M/mm3 Hgb 14.5 (12.0-15.0) g/dL Hct 44.7 (37.0-47.0) % MCV 92.7 (80-100) fl MCH 30.1 (26-34) pg MCHC 32.4 (32-36) g/dl RDW 12.6 (11.5-14.5) % Plt Count 270 (150-375) k/mm3 MPV 9.3 (7.4-10.4) fl Immature Gran % (Auto) 0.8 H (0-0.5) % Neut % (Auto) 59.0 (45.5-73.1) % Lymph % (Auto) 30.5 (18.3-44.2) % Frontier % (Auto) 6.7 (2.6-8.5) % Eos % (Auto) 2.3 (0-4.4) % Baso % (Auto) 0.7 (0.2-1.2) % Lymph # (Auto) 3.16 (0.9-3.2) K/mm3 Frontier # (Auto) 0.7 H (0.1-0.6) K/mm3 Eos # (Auto) 0.2 (0-0.3) K/mm3 Baso # (Auto) 0.1 (0.0-0.1) K/mm3 Abs Immat Gran (auto) 0.08 H (0.00-0.031) K/mm3 Absolute Neuts (auto) 6.1 (1.3-6.7) K/mm3 Absolute Nucleated RBC 0.000 (0.0-0.012) K/mm3 Nucleated RBC % 0.0 (0.0-0.2) % Sodium 140 (137-145) mmol/L Potassium 3.9 (3.4-5.0) mmol/L Chloride 101 (98-107) mmol/L Carbon Dioxide 29 (22-30) mmol/L Anion Gap 10 (4-12) mmol/L BUN 13 (7-17) mg/dL Creatinine 1.03 H (0.7-1.0) mg/dL Estim Creat Clear Calc 51 ml/min Estimated GFR 56 L (59 - ) Glucose 104 (65-110) mg/dL Calcium 9.3 (8.4-10.2) mg/dL Total Bilirubin 0.4 (0.2-1.3) mg/dL AST 24 (14-36) U/L ALT 37 H (6-35) U/L Alkaline Phosphatase 106 (38-126) U/L Total Protein 7.0 (6.3-8.2) g/dL Albumin 4.2 (3.5-5.1) g/dL Urine Color Yellow (Yellow) Urine Appearance Clear (Clear) Urine pH 5.5 (5.0-9.0) Ur Specific Holden 1.013 (1.001-1.035) Urine Protein Negative (Negative) mg/dL Urine Glucose (UA) Negative (Negative) mg/dL Urine Ketones Negative (Negative) mg/dL Ur Blood (Man) Negative (Negative) Urine Nitrate Negative (Negative) Urine Bilirubin Negative (Negative) Urine Urobilinogen 0.2 (<2.0) mg/dL Leukocyte Esterase Rfl Trace H (Negative) KAYLI/UL Urine RBC 0-2 (0-2) /hpf Urine WBC 0-5 (0-3) /hpf Ur Squamous Epith Cells Occasional (Few) /hpf Urine Bacteria None seen /hpf Urine Casts 0-2 POC Urine HCG, Qual Negative (Negative) Imaging Data Radiologist's impression: Impressions Abdomen/Pelvis CT 01/07/25 13:00 IMPRESSION: 1. Bilateral nonobstructing nephrolithiasis. No acute intra-abdominal/pelvic process. Critical Care Time Critical Care Time Critical Care Time: No Discharge Plan Discharge Clinical Impression: Lower back pain Patient Disposition: Home Condition: Stable Instructions: Back Pain (ED), Lower Back Exercises (ED) Additional Instructions: Return if symptoms are worsening , call your family physician for appointment, take Tylenol as as needed for aches and pain, continue home medications. Patient Language: Persian Prescriptions: New diclofenac sodium 75 mg tablet,delayed release (DR/EC) 75 mg PO BID PRN (Reason: pain) Qty: 14 0RF cyclobenzaprine 10 mg tablet 10 mg PO TID PRN (Reason: muscle spasm) Qty: 20 0RF No Action atorvastatin 80 mg tablet 80 mg PO DAILY levothyroxine [Euthyrox] 75 mcg tablet 75 mcg PO DAILY potassium citrate 10 mEq (1,080 mg) tablet extended release 10 meq PO BID esomeprazole magnesium 40 mg capsule,delayed release(DR/EC) 40 mg PO BID lisinopril 10 mg tablet 10 mg PO DAILY zolpidem 10 mg tablet 10 mg PO HS ezetimibe 10 mg tablet 10 mg PO DAILY duloxetine 60 mg capsule,delayed release(DR/EC) 60 mg PO DAILY hydrocodone-acetaminophen 5-325 mg tablet 1 - 2 tablet PO Q6H PRN (Reason: pain) Qty: 20 0RF diclofenac sodium 75 mg tablet,delayed release (DR/EC) 75 mg PO DAILY quetiapine 50 mg tablet 50 mg PO HS cefuroxime axetil 500 mg tablet 500 mg PO BID Qty: 10 0RF hydrocodone-acetaminophen 5-325 mg tablet 1 - 2 tablet PO Q6H PRN (Reason: pain) Qty: 20 0RF Follow-up/Referrals: PHYSICIAN NOT ON STAFF,NONSTAFF [Primary Care Provider]
[2025-01-07 12:28] LABS: Alanine Aminotransferase 37 U/L (6-35); Albumin Level 4.2 g/dL (3.5-5.1); Alkaline Phosphatase 106 U/L (38-126); Anion Gap 10 mmol/L (4-12); Aspartate Amino Transferase 24 U/L (14-36); Bilirubin,Total 0.4 mg/dL (0.2-1.3); Blood Urea Nitrogen 13 mg/dL (7-17); Calcium 9.3 mg/dL (8.4-10.2); Carbon Dioxide 29 mmol/L (22-30); Chloride 101 mmol/L (98-107); Estimated CRCL calculation 51 ml/min; Estimated Glomerular Filt Rate 56; Glucose 104 mg/dL (65-110); Potassium 3.9 mmol/L (3.4-5.0); Sodium 140 mmol/L (137-145); Total Protein 7.0 g/dL (6.3-8.2)
[2025-01-07] MEDS: SODIUM CHLORIDE 0.9% IV 1,000 ML 999 ML IV CONT (12:28)
[2025-01-07] MEDS: KETOROLAC 30 MG/ML VIAL (*BKC) IV PUSH (13:05)
[2025-01-07 13:33] VITALS: BP 109/77; PULSE 76; RESP 18; O2SAT 100
== END 2025-01-07 13:35 | disposition home or self-care (01) ==
PROVIDERS: Emergency Medicine; Emergency Provider Emergency Medicine
DX: M54.50 Low back pain, unspecified (principal); I10 Essential (primary) hypertension; E78.5 Hyperlipidemia, unspecified; E03.9 Hypothyroidism, unspecified; Z87.442 Personal history of urinary calculi; F17.210 Nicotine dependence, cigarettes, uncomplicated; N20.0 Calculus of kidney
CPT/HCPCS: 36415; 74177; 80053; 81001; 81025; 85025; 96361; 96374; 99284; J1885; J7030; Q9967